=== PATIENT | female | born 1965 | race Caucasian/White ===

== ENCOUNTER → 2016-11-26 | Outpatient (CLI) | payer MEDICARE, MEDICAID ==
[~2016-11-26] MED LIST: ALBU17IN INH; CLON1TAB PO; LAMI1TAB8 PO; LAMI200T3 PO; LEVO25TA5 PO; LITH300C PO; LITH300T2 PO; MONT10TA2 PO; PROP20TA PO; SERO400T PO; SIMV10TA2 PO; TEMA30CA PO
--- NOTE | 2016-11-26 14:13 | REPMRS ---
Patient History The patient states she has not had a clinical breast exam in over a year. Patient has history of other cancer at age 27. No known family history of cancer. Digital Woman Screen Mammo: November 26, 2016 - Exam #: [id number] Bilateral CC and MLO view(s) were taken. Technologist: Bren Frost, Technologist Prior study comparison: November 23, 2015, digital woman screen mammo performed at [facility]. December 07, 2014, right breast digital mammo diagnostic unilateral, performed at [facility]. FINDINGS: The breast tissue is heterogeneously dense. This may lower the sensitivity of mammography. There has been no change in the appearance of the mammogram from the prior studies. There is a moderate amount of residual fibroglandular tissue which is fairly symmetric. There is no interval development of dominant mass, areas of architectural distortion, or clustered microcalcification typical of malignancy. ASSESSMENT: BI-RADS/ACR category 1 mammogram. Negative. Recommendation Routine screening mammogram in 1 year (for women over age 40). This mammogram was interpreted with the aid of an FDA-approved computer-aided dectection system. Electronically Signed By: Vazquez Crenshaw MD 11/26/16 [id number]
== END ==
LOC: M WHC 12:59
PROVIDERS: ATTEND Nurse Practitioner
DX: Z12.31 Encounter for screening mammogram for malignant neoplasm of breast (principal)

== ENCOUNTER → 2016-12-27 | Outpatient (CLI) | payer MEDICARE, MEDICAID ==
[~2016-12-27] MED LIST changes: +ATIV1TAB7 PO; +BENZ100C5; +CLOZ100T14 PO; +IMIT100T PO; +OMEG1CAP4; +OSEL75CA PO; +prednisone OR
--- NOTE | 2016-12-27 14:14 | REP ---
TWO VIEW CHEST: Two views of the chest are performed and compared to a prior study of 09/05/2015 and 02/08/2016. There appears to be mild patchy right perihilar infiltrate. No infiltrate is seen on the left. The heart is normal in size. The mediastinal silhouette is unchanged. IMPRESSION: Very mild patchy right perihilar infiltrate.
== END ==
LOC: M CLY 13:01
PROVIDERS: ATTEND Physician Assistant
DX: J11.1 Influenza due to unidentified influenza virus with other respiratory manifestations (principal)
CPT/HCPCS: 71020; G0463

== ENCOUNTER 2016-12-28 19:27 | Emergency (ER) | payer MEDICARE, MEDICAID ==
[~2016-12-28] VITALS: Ht 157.5 cm; Wt 83.5 kg
[~2016-12-28 19:27] MED LIST changes: -ATIV1TAB7 PO; -BENZ100C5; -CLOZ100T14 PO; -IMIT100T PO; -OMEG1CAP4; -OSEL75CA PO; -prednisone OR
[2016-12-28] MEDS ORDERED: ATIV1TAB7 PO (19:39)
[2016-12-28] MEDS ORDERED: IMIT100T PO (19:39)
[2016-12-28] MEDS ORDERED: LITH300C PO (19:39)
[2016-12-28] MEDS ORDERED: OSEL75CA PO (19:39)
[2016-12-28] MEDS ORDERED: prednisone OR (19:40)
[2016-12-28] MEDS ORDERED: BENZ100C5 (19:42)
[2016-12-28] MEDS ORDERED: OMEG1CAP4 (19:42)
[2016-12-28] MEDS ORDERED: CLOZ100T14 PO (19:42)
[2016-12-28] MEDS ORDERED: NS 1,000 ML IV ONE (23:45)
[2016-12-28] MEDS ORDERED: ACETAMINOPHEN 325 MG TAB PO ONE (23:45)
[2016-12-29 00:05] LABS: BASO % 0.5 % (0.0-1.0); EOS # 0.4 K/mm3 (0.0-0.50); EOS % 4.6 % (0.0-3.0); LARGE UNSTAINED CELL # 0.1 K/mm3 (0.0-0.4); LARGE UNSTAINED CELL % 1.2 % (0.0-4.0); LYMPH # 2.6 K/mm3 (1.5-4.5); LYMPH % 31.2 % (24.0-44.0); MEAN CORPUSCULAR HEMOGLOBIN 29.6 pg (27.0-33.0); MEAN CORPUSCULAR HGB CONC 32.3 g/dl (32.0-36.5); MEAN CORPUSCULAR VOLUME 91.5 fl (80.0-96.0); MONO # 0.5 K/mm3 (0.0-0.8); NEUTROPHILS # 4.5 K/mm3 (1.8-7.7); NEUTROPHILS % 56.4 % (36.0-66.0); PLATELET COUNT, AUTOMATED 221 k/mm3 (150-450); RED CELL DISTRIBUTION WIDTH 12.7 % (11.5-14.5)
[2016-12-29] MEDS: ALBUTEROL SULFATE 2.5 MG/0.5 ML INH NEB SOLN NEB PRN ×3 (00:25→00:55)
[2016-12-29 00:26] LABS: ANION GAP 6 MEQ/L (8-16); BLOOD UREA NITROGEN 18 MG/DL (7-18); CALCIUM LEVEL 9.8 MG/DL (8.5-10.1); CARBON DIOXIDE LEVEL 24 MEQ/L (21-32); CHLORIDE LEVEL 109 MEQ/L (98-107); CREATININE FOR GFR 1.02 MG/DL (0.55-1.02); GLOMERULAR FILTRATION RATE > 60.0 (>51); GLUCOSE, FASTING 97 MG/DL (70-105); SODIUM LEVEL 139 MEQ/L (136-145)
[2016-12-29 00:39] LABS: POTASSIUM SERUM 5.2 MEQ/L (3.5-5.1)
[2016-12-29 01:05] VITALS: BP 102/69
--- NOTE | 2016-12-29 11:00 | REP ---
PA LATERAL CHEST: 12/29/2016. Comparison 12/27/2016, 02/08/2016. Clinical history: Pneumonia, influenza. The subtle patchy infiltrate is less apparent on this slightly more penetrated exam but is still present. There is no new or progressive infiltrate, effusion, atelectasis or mass. The heart, mediastinal and hilar contours are normal. Minor apical pleural scarring noted. No effusion or lateral pleural thickening. There is no free air under the diaphragm. Bones unremarkable. Impression: 1. Some minor patchy perihilar atelectasis or infiltrate in the right mid lung zone without new or progressive infiltrates, effusion, atelectasis or cardiomegaly. Essentially stable exam. Signed by Mayo Thapa MD 12/29/2016 08:21 P
== END 2016-12-29 01:08 | disposition home or self-care (01) ==
LOC: M ED 21:08
DX: J10.1 Influenza due to other identified influenza virus with other respiratory manifestations (principal); J45.909 Unspecified asthma, uncomplicated; E03.9 Hypothyroidism, unspecified; E78.5 Hyperlipidemia, unspecified; G43.909 Migraine, unspecified, not intractable, without status migrainosus; F31.9 Bipolar disorder, unspecified; Z88.8 Allergy status to other drugs, medicaments and biological substances

== ENCOUNTER → 2017-01-02 | Outpatient (CLI) | payer MEDICARE, MEDICAID ==
[~2017-01-02] MED LIST changes: +ATIV1TAB7 PO; +BENZ100C5; +CLOZ100T14 PO; +IMIT100T PO; +OMEG1CAP4; +OSEL75CA PO; +prednisone OR
--- NOTE | 2017-01-02 10:05 | REP ---
CHEST, TWO VIEWS: COMPARISON: 12/28/2016 There is no evidence of acute infiltrate. No pleural effusion is seen. The heart is normal in size. The mediastinal silhouette is unremarkable. The visualized osseous structures are intact. IMPRESSION: No acute pulmonary disease. The right perihilar infiltrate has resolved. Signed by Vazquez Crenshaw MD 01/02/2017 02:25 P
== END ==
LOC: M RAD 08:25
PROVIDERS: ATTEND Physician Assistant
DX: J11.1 Influenza due to unidentified influenza virus with other respiratory manifestations (principal); F20.9 Schizophrenia, unspecified; F31.9 Bipolar disorder, unspecified

== ENCOUNTER → 2017-01-02 | Outpatient (CLI) | payer MEDICARE, MEDICAID ==
[2017-01-02 07:06] LABS: BASO % 0.7 % (0.0-1.0); EOS # 0.4 K/mm3 (0.0-0.50); EOS % 5.4 % (0.0-3.0); LARGE UNSTAINED CELL # 0.1 K/mm3 (0.0-0.4); LARGE UNSTAINED CELL % 1.3 % (0.0-4.0); LYMPH # 2.1 K/mm3 (1.5-4.5); LYMPH % 27.9 % (24.0-44.0); MEAN CORPUSCULAR HEMOGLOBIN 28.7 pg (27.0-33.0); MEAN CORPUSCULAR VOLUME 89.6 fl (80.0-96.0); MONO # 0.6 K/mm3 (0.0-0.8); MONO % 7.2 % (0.0-5.0); NEUTROPHILS # 4.4 K/mm3 (1.8-7.7); NEUTROPHILS % 57.5 % (36.0-66.0); PLATELET COUNT, AUTOMATED 292 k/mm3 (150-450); RED CELL DISTRIBUTION WIDTH 12.5 % (11.5-14.5); WHITE BLOOD COUNT 7.6 K/mm3 (4.0-10.0)
== END ==
LOC: M LAB 06:18
PROVIDERS: ATTEND Nurse Practitioner Psychiatric/Mental Health
DX: F20.9 Schizophrenia, unspecified (principal); F31.9 Bipolar disorder, unspecified

== ENCOUNTER 2017-02-02 10:54 | Observation (INO) | payer MEDICARE, MEDICAID ==
[~2017-02-02] VITALS: Ht 157.5 cm; Wt 87.2 kg
[~2017-02-02 10:54] MED LIST changes: +ASPIRIN 81 MG ENTERIC TAB PO SCH; +LORATADINE 10 MG TAB PO SCH; +MONTELUKAST 10 MG TAB PO SCH
[2017-02-02] MEDS ORDERED: NS 500 ML IV ONE (11:15)
[2017-02-02] MEDS ORDERED: RANI150C PO (11:25)
[2017-02-02] MEDS ORDERED: MULT1CHW39 PO (11:25)
[2017-02-02] MEDS ORDERED: LEVO50TA5 PO (11:25)
[2017-02-02] MEDS ORDERED: LAMO100T PO (11:25)
[2017-02-02] MEDS ORDERED: ASPI81TA21 PO (11:25)
[2017-02-02] MEDS ORDERED: TOPI200T4 PO (11:25)
[2017-02-02] MEDS ORDERED: CALC600T57 PO (11:25)
[2017-02-02] MEDS ORDERED: CLOZ200T PO ×2 (11:25→13:04)
[2017-02-02 11:47] LABS: BASO # 0.1 K/mm3 (0.0-0.2); EOS # 0.4 K/mm3 (0.0-0.50); EOS % 6.5 % (0.0-3.0); LARGE UNSTAINED CELL # 0.1 K/mm3 (0.0-0.4); LARGE UNSTAINED CELL % 1.1 % (0.0-4.0); LYMPH # 1.5 K/mm3 (1.5-4.5); LYMPH % 23.9 % (24.0-44.0); MEAN CORPUSCULAR HEMOGLOBIN 30.1 pg (27.0-33.0); MEAN CORPUSCULAR HGB CONC 32.3 g/dl (32.0-36.5); MONO # 0.3 K/mm3 (0.0-0.8); MONO % 5.1 % (0.0-5.0); NEUTROPHILS # 3.8 K/mm3 (1.8-7.7); NEUTROPHILS % 62.5 % (36.0-66.0); PLATELET COUNT, AUTOMATED 246 k/mm3 (150-450); RED CELL DISTRIBUTION WIDTH 13.1 % (11.5-14.5); WHITE BLOOD COUNT 6.1 K/mm3 (4.0-10.0)
--- NOTE | 2017-02-02 11:57 | REP ---
CT BRAIN WITHOUT IV CONTRAST: CT brain is performed without IV contrast. Ventricles are normal in size and position with no midline shift. No abnormal densities are seen. Crenshaw-white differentiation is well maintained. There is no acute hemorrhage or extra-axial fluid collection. No skull fracture is seen. Visualized paranasal sinuses and mastoid air cells are clear. IMPRESSION: Negative noncontrast CT brain. Signed by Vazquez Crenshaw MD 02/02/2017 07:47 P
--- NOTE | 2017-02-02 11:58 | REP ---
CHEST, SINGLE VIEW: There is no evidence of acute infiltrate. No pleural effusion is seen. The heart is normal in size. The mediastinal silhouette is unremarkable. The visualized osseous structures are intact. IMPRESSION: No acute pulmonary disease. Signed by Vazquez Crenshaw MD 02/02/2017 07:47 P
[2017-02-02 11:59] LABS: CALCIUM LEVEL 8.7 MG/DL (8.5-10.1); CREATININE FOR GFR 1.08 MG/DL (0.55-1.02); GLOMERULAR FILTRATION RATE 56.9 (>51); POTASSIUM SERUM 4.1 MEQ/L (3.5-5.1)
[2017-02-02] MEDS: LITHIUM CARBONATE 300 MG CAP PO SCH ×2 (12:00→20:04)
[2017-02-02] MEDS ORDERED: LITHIUM CARBONATE 300 MG CAP PO SCH (12:00)
[2017-02-02 12:06] LABS: INR 0.91
[2017-02-02] MEDS ORDERED: ACETAMINOPHEN TAB 650MG DOSE (2X325MG) PO ONE (12:15)
[2017-02-02] MEDS ORDERED: KETOROLAC 30 MG/ML VIAL (J1885) IV ONE (12:15)
[2017-02-02] MEDS ORDERED: LITH300T2 PO ×2 (13:04)
[2017-02-02] MEDS ORDERED: LEVO75TA34 PO (13:04)
[2017-02-02] MEDS ORDERED: ATIV1TAB7 PO (13:04)
[2017-02-02] MEDS ORDERED: CALCTAB68 PO (13:04)
[2017-02-02] MEDS ORDERED: SIMV10TA2 PO (13:04)
[2017-02-02] MEDS ORDERED: VITMTA PO (13:04)
[2017-02-02] MEDS ORDERED: TOPI1TAB31 PO (13:04)
[2017-02-02] MEDS ORDERED: LORA10TA2 PO (13:04)
[2017-02-02] MEDS ORDERED: ALBU17IN INH (13:04)
[2017-02-02] MEDS ORDERED: SUMA20SP (13:04)
[2017-02-02] MEDS ORDERED: LAMI100T PO (13:04)
[2017-02-02] MEDS ORDERED: LOVA1CAP17 PO (13:04)
[2017-02-02] MEDS ORDERED: ASPI81TA7 PO (13:04)
[2017-02-02] MEDS ORDERED: LAMI200T PO (13:04)
[2017-02-02] MEDS ORDERED: RANI150T PO (13:04)
[2017-02-02] MEDS ORDERED: LORA1TAB12 PO (13:04)
[2017-02-02] MEDS ORDERED: MONT10TA2 PO (13:04)
[2017-02-02 13:35] LABS: LITHIUM LEVEL 1.16 MEQ/L (0.60-1.20)
[2017-02-02 14:02] VITALS: BP 128/95
[2017-02-02] MEDS ORDERED: ALBUTEROL 90 MCG/ACT 8GM HFA INHALER INH PRN (14:30)
[2017-02-02] MEDS ORDERED: LORazepam 1 MG TAB PO PRN (14:30)
[2017-02-02] MEDS: HEPARIN SOD (PORCINE) 5000 UNITS/ML VIAL SC SCH ×2 (15:37→20:08)
[2017-02-02] MEDS: MONTELUKAST 10 MG TAB PO SCH (15:38)
[2017-02-02] MEDS: LORATADINE 10 MG TAB PO SCH (15:38)
[2017-02-02] MEDS: FAMOTIDINE 20 MG TAB PO SCH (15:38)
[2017-02-02 16:00] VITALS: BP 113/78
--- NOTE | 2017-02-02 16:47 | ECGEPIP ---
Stationary ECG Study [facility] - ED Test Date: 2017-02-02 Pat Name: PATRICIA MINER Department: Room: - Gender: F Cardiac Care Unit Nurse: rn : 1965 Requested By: DARÍO Lanza Order Number: [id number] Reading MD: Nichol Marcelino Measurements Intervals [place] Rate: 62 P: 4 ID: [id number] QRS: 7 QRSD: 101 T: -8 QT: 412 QTc: 421 Interpretive Statements SINUS RHYTHM NSTTW ABNORMALITY Electronically Signed On 02-02-2017 16:47:20 EDT by Nichol Marcelino
[2017-02-02 17:50] VITALS: BP 117/76
--- NOTE | 2017-02-02 20:00 | REPUSA ---
MRI brain Clinical history: Left sided numbness. Technique: Multiecho multiplanar MRI images of the brain were obtained without administration of cont rast. Diffusion weighted images with ADC mapping was also obtained. The ventricles and sulci are symmetric bilaterally. The brain parenchyma demonstrates uniform and nor mal signal on all sequences. There is no midline shift, mass effect, or extra-axial fluid collection. The midline intracranial structures do not demonstrate any gross abnormalities. The cervical cranial junction is intact. The orbits are unremarkable. The visualized paranasal sinuses and mastoid air ce lls are clear. The osseous structures and superficial soft tissues are unremarkable. The vascular str uctures demonstrate appropriate flow voids. Impession: Unremarkable MRI of the brain.
--- NOTE | 2017-02-02 20:00 | REPUSA ---
MRA of the brain Clinical history: Left sided numbness. Technique: [id number] MRA images of the brain were obtained without administration of contrast. 3 -D MIP images were also obtained. Findings: The vascular structures extending from the distal carotid and vertebrobasilar arterial syst ems, through the [place], demonstrate normal caliber and contour. There is no evidence of an eurysm, stenosis, or thrombosis. Impression: Unremarkable MRA examination of the brain.
[2017-02-02] MEDS: OMEGA-3 1050MG CAPSULE PO SCH (20:04)
[2017-02-02] MEDS: cloZAPine 100 MG TAB (S0136) PO SCH (20:04)
[2017-02-02 20:05] VITALS: BP 115/79
[2017-02-02] MEDS: LORazepam 1 MG TAB PO SCH (20:05)
[2017-02-02] MEDS: SIMVASTATIN 10 MG TAB PO SCH (20:05)
[2017-02-02] MEDS: TOPIRAMATE (TopAMAX) 100 MG TAB PO SCH (20:05)
--- NOTE | 2017-02-02 23:01 | HPE ---
DATE OF ADMISSION: 02/02/2017 PRIMARY CARE PROVIDER: Lucita Leon in [facility]. CHIEF COMPLAINT: Left-sided numbness. HISTORY OF PRESENT ILLNESS: This patient is a 49-year-old female with a past medical history significant for bipolar disorder, borderline personality disorder, anxiety/depression, obsessive-compulsive disorder (OCD), hypothyroidism, hypercholesterolemia, history of psychosis who presented to [facility] on 02/02/2017 for acute onset of left-sided numbness and tingling. Around 7 o'clock when patient was in the shower, patient experienced acute onset of numbness of the left hand, left face, and the left foot. She also started having tingling sensation of the affected area. Patient feels she also started having slurred speech and left-sided visual disturbance. Therefore, patient came to [facility] for evaluation. When patient was evaluated around 1 p.m., patient states her left foot numbness and tingling was improving; however, she still has a decreased sensation of her left hand and the left face, and she still feels the left facial droop still persists. Those symptoms never happened before. Patient has a history of migraine headaches. Usually she will have an acute exacerbation one to two times a month. The most recent episode was approximately 2 days ago. Patient describes current visual disturbance different from the visual aura that she had during the exacerbations. Denies any new medication changes. Denies any recreational drug use. Denies any new lifestyle modifications. ALLERGIES: 1. PROZAC (decreased visual acuity). 2. HYDROXYZINE (increased agitation). HOME MEDICATIONS: - loratadine 10 mg - topiramate 100 mg - montelukast 10 mg - lithium 300 mg - simvastatin 10 mg - lamotrigine 200 mg - ranitidine 150 mg - lorazepam 1 mg - clonazepam 200 mg - levothyroxine 0.05 mg - sumatriptan 100 mg - aspirin 81 mg PAST MEDICAL HISTORY: 1. Bipolar disorder. 2. Borderline personality disorder. 3. Anxiety/depression. 4. OCD. 5. Hypothyroidism. 6. Hypercholesterolemia. 7. History of psychosis. PAST SURGICAL HISTORY: 1. Left foot repair surgery. 2. Tubal ligation. SOCIAL HISTORY: Denied smoking. Patient has a history of heavy drinking; however , patient does not have recent alcohol consumption or abuse. Patient has history of multidrug dependence. Patient used to use crack, heroin, oxycodone, weed, and many other illicit drugs. Patient quit completely since 12 years ago. REVIEW OF SYSTEMS: GENERAL: No fever. No chills. HEENT: Complained about left-sided visual disturbance, causing blurry vision. The vision disturbance is different from her normal visual auras. Patient complained about left facial droop. Also a history of migraine headache. Denies any auditory changes. CARDIOVASCULAR: No chest pain. No palpitations. RESPIRATORY: No shortness of breath. No cough. No sputum production. GASTROINTESTINAL: No nausea. No vomiting. No abdominal pain. No diarrhea. MUSCULOSKELETAL: No joint pain. No muscle pain. NEUROLOGIC: Patient started to have acute onset of left face, left arm, left foot numbness or tingling that started at 8 a.m. this morning. Left foot numbness improving around 1 p.m.; however, the left upper extremity numbness still persists. Patient also has left-sided facial droop and left-sided visual disturbance. Those symptoms never happened before. OBJECTIVE: VITAL SIGNS: Temperature is 97.1, pulse is 66, respirations 18, blood pressure is 118/84, pulse oximetry 97% in room air. GENERAL: Obese. No sign of acute distress. Alert and oriented times three. HEENT: Normocephalic, atraumatic. Extraocular motion grossly intact. CARDIOVASCULAR: Positive S1, S2, regular rate. LUNGS: Clear to auscultation bilaterally. No wheezes or rhonchi. ABDOMEN: Obese, soft, nontender, nondistended. Bowel sounds present. No rebound. No guarding. MUSCULOSKELETAL: No lower extremity edema. No sign of cyanosis. NEUROLOGIC: There is some very mild left facial droop in the lower left face; otherwise, cranial nerves II-XII grossly intact. Sensation to fine touch decreased of the left face, left distal upper extremity, and left distal lower extremity compared to the right side. Muscle strength 5/5 throughout. LABORATORY DATA: WBC is 6.1, hemoglobin 12.2, hematocrit 37.8, platelet count is 246. Sodium is 143, potassium 4.1, chloride is 112, carbon dioxide 22, BUN 14, creatinine 1.08, GFR is 56.9, fasting glucose 89, calcium is 8.7. PT is 12.4, INR 0.91, PTT is 24.7. IMAGING STUDIES: CT of the head without contrast showed negative non-contrast CT. Chest x-ray showed no acute pulmonary disease. EKG shows sinus rhythm. ASSESSMENT AND PLAN: 1. Acute left-sided numbness or tingling. Patient admitted to medical/surgical floor under observation status. Will continue to work to rule out a transient ischemic attack (TIA)/stroke. Will consider consulting neurologist. Based on the patient's history, patient does have frequent migraine headaches. Cannot rule out complex migraine completely. Patient has been on many psychiatric medication. We will follow with the levels. 2. Bipolar disorder. Continue home medications. 3. Borderline personality disorder. 4. Anxiety/depression. 5. Obsessive-compulsive disorder (OCD). 6. Hypothyroidism. We will follow with thyroid-stimulating hormone (TSH). Continue home medications. 7. Hypercholesterolemia. Continue statin, aspirin. 8. History of psychosis. 9. History of multidrug abuse. Per patient, patient stopped using recreational drugs 12 years ago. 10. Deep vein thrombosis (DVT) prophylaxis. Patient will be on heparin. [facility]
[2017-02-02 23:50] VITALS: BP 102/62
[2017-02-03] MEDS ORDERED: SLF 3 ML SYR IV PRN
[2017-02-03 04:30] VITALS: BP 102/58
[2017-02-03 05:20] LABS: MEAN CORPUSCULAR HEMOGLOBIN 30.4 pg (27.0-33.0); MEAN CORPUSCULAR HGB CONC 33.1 g/dl (32.0-36.5); MEAN CORPUSCULAR VOLUME 91.9 fl (80.0-96.0); WHITE BLOOD COUNT 5.8 K/mm3 (4.0-10.0)
[2017-02-03 05:34] LABS: ANION GAP 8 MEQ/L (8-16); BLOOD UREA NITROGEN 13 MG/DL (7-18); CALCIUM LEVEL 8.2 MG/DL (8.5-10.1); CARBON DIOXIDE LEVEL 20 MEQ/L (21-32); CHLORIDE LEVEL 117 MEQ/L (98-107); CREATININE FOR GFR 0.95 MG/DL (0.55-1.02); GLOMERULAR FILTRATION RATE > 60.0 (>51); GLUCOSE, FASTING 98 MG/DL (70-105); POTASSIUM SERUM 3.8 MEQ/L (3.5-5.1); SODIUM LEVEL 145 MEQ/L (136-145)
[2017-02-03] MEDS: LEVOTHYROXINE 0.075 MG TAB (75 MCG) PO SCH (05:45)
[2017-02-03] MEDS: HEPARIN SOD (PORCINE) 5000 UNITS/ML VIAL SC SCH ×3 (05:48→21:01)
[2017-02-03] MEDS: SLF 3 ML SYR IV SCH ×3 (06:29→21:01)
[2017-02-03 08:00] VITALS: BP 114/70
[2017-02-03] MEDS ORDERED: MULTIVITAMINS/MINERALS THERAP 1 TAB PO SCH (09:00)
[2017-02-03] MEDS ORDERED: FAMOTIDINE 20 MG TAB PO SCH (09:00)
[2017-02-03] MEDS: LITHIUM CARBONATE 300 MG CAP PO SCH ×3 (09:12→21:00)
[2017-02-03] MEDS: lamoTRIgine 100MG TAB PO SCH (09:59)
[2017-02-03 12:00] VITALS: BP 113/73
[2017-02-03] MEDS: MONTELUKAST 10 MG TAB PO SCH (12:13)
[2017-02-03] MEDS: FAMOTIDINE 20 MG TAB PO SCH (12:13)
[2017-02-03] MEDS: ASPIRIN 81 MG ENTERIC TAB PO SCH (12:13)
[2017-02-03] MEDS: LORATADINE 10 MG TAB PO SCH (12:13)
--- NOTE | 2017-02-03 12:58 | IPN ---
DATE: 02/03/2017 The patient seen and examined. No acute events overnight. Continues to report left upper extremity numbness and left facial numbness. As per patient, her speech is slurred but I was not able to detect any. Denies any chest pain, pressure or discomfort. Flat affect. VITAL SIGNS: Temperature 99.2, pulse 66, respirations 20, blood pressure 114/70, pulse oximetry 96% on room air. LABORATORY: WBC 5.8, hemoglobin and hematocrit 11.3 over 34.2 (H and H), platelets 230. Chemistry: Sodium 145, potassium 3.8, chloride 117, bicarbonate 20, BUN 13, creatinine 0.95. PHYSICAL EXAMINATION: GENERAL: The patient is obese in no acute distress. Alert and oriented times three. Flat affect. HEENT: Normocephalic, atraumatic. Extraocular muscles are intact. CARDIAC: Regular rate and rhythm. Normal S1, S2. PULMONARY: Bilateral clear to auscultation. No wheezing, rales or rhonchi. ABDOMEN: Soft. Obese. Nontender. Positive bowel sounds. EXTREMITIES: No edema bilateral lower extremities. NEUROLOGIC: Cranial nerves II-XII grossly intact. As per patient, reports sensation of left facial numbness and left upper extremity numbness, but no motor deficits were detected. Reflexes are intact. ASSESSMENT AND PLAN: 1. This is a 51-year-old female patient with underlying medical history of bipolar disorder, borderline personality disorder, anxiety and depression, obsessive compulsive disorder, hypothyroidism, dyslipidemia, history of psychosis who presented to [facility] with left sided numbness and tingling and also left facial numbness admitted to the progressive care unit (PCU) for rule out CVA, possible secondary to transient ischemic attack (TIA), neurology consulted, possibly also complex migraine as per Dr. Villalta. MRI and MRA of the brain negative. Followup patient's drug level. MRA of the carotid. Echocardiogram. Will complete the workup prior to discharge. 2. Bipolar disorder. Continue home medications. 3. Borderline personality disorder. Outpatient followup. 4. Depression and anxiety. Continue current medications. 5. Obsessive compulsive disorder. Continue current medications. 6. Hypothyroidism. TSH appreciated. Continue home medications. 7. Dyslipidemia. Continue statin and aspirin. 8. History of psychosis. Supportive care, outpatient followup. Continue current medications. 9. History of multi drug abuse. As per patient, she has stopped using recreational drugs twelve years ago. 10. Deep vein thrombosis (DVT) prophylaxis. Heparin subcutaneous. DISPOSITION: Pending echo and MRA of the neck.
[2017-02-03] MEDS: ACETAMINOPHEN TAB 650MG DOSE (2X325MG) PO PRN ×2 (14:50→19:39)
[2017-02-03 16:00] VITALS: BP 110/71
[2017-02-03] MEDS ORDERED: lamoTRIgine 100MG TAB PO SCH (17:30)
[2017-02-03 19:36] VITALS: BP 116/75
[2017-02-03] MEDS: cloZAPine 100 MG TAB (S0136) PO SCH (21:00)
[2017-02-03] MEDS: LORazepam 1 MG TAB PO SCH (21:00)
[2017-02-03] MEDS: OMEGA-3 1050MG CAPSULE PO SCH (21:00)
[2017-02-03] MEDS: SIMVASTATIN 10 MG TAB PO SCH (21:00)
[2017-02-03] MEDS ORDERED: ATORVASTATIN 20 MG TAB PO SCH (21:00)
[2017-02-03] MEDS: TOPIRAMATE (TopAMAX) 100 MG TAB PO SCH (21:00)
[2017-02-03 23:55] VITALS: BP 94/62
--- NOTE | 2017-02-04 01:12 | CR ---
DATE OF CONSULTATION: 02/03/2017 REFERRING PHYSICIAN: Farida Solorio MD. REASON FOR CONSULTATION: Left-sided numbness. HISTORY OF PRESENT ILLNESS: Maria Isabel Regalado is a 51-year-old woman with history of bipolar disorder, borderline personality disorder, obsessive-compulsive disorder, anxiety, depression, dyslipidemia, history of psychosis, who was admitted at [facility] yesterday due to left-sided face, arm and leg tingling and numbness. She noted her symptoms 7 o'clock in the morning while she was taking a shower. She felt tingling sensation of left face, arm and leg. She also felt slurred speech and visual changes on the left side. She also developed 7/10 headache. She felt slight imbalance. She denies any seizures, dysphagia, dysarthria, diplopia or urinary incontinence. She denies any falls or loss of consciousness. She denies any injuries or illness. PAST MEDICAL HISTORY: 1. Bipolar disorder. 2. Borderline personality disorder. 3. Anxiety. 4. Depression. 5. Obsessive-compulsive disorder. 6. Dyslipidemia. 7. History of psychosis. 8. Hypothyroidism. ALLERGIES: PROZAC, HYDROXYZINE. HOME MEDICATIONS: - Lamictal 100 plus 200 mg a day - Claritin 10 mg by mouth daily - Topamax 100 mg by mouth daily - Singulair 10 mg by mouth daily - lithium - simvastatin 10 mg by mouth daily - Zantac 150 mg by mouth nightly - Ativan 1 mg by mouth twice a day as needed - Klonopin at unknown dose - levothyroxine 50 mcg by mouth daily - sumatriptan 100 mg by mouth twice a day as needed - aspirin 81 mg by mouth daily SOCIAL HISTORY: She denies smoking. She has history of heavy alcohol consumption. She denies any recent alcohol intake. She has history of polysubstance abuse in past. She used crack cocaine, heroin, oxycodone, weed, and other illicit drugs. She quit using drugs 12 years ago. FAMILY HISTORY: Unremarkable and noncontributory. REVIEW OF SYSTEMS: All systems were reviewed and were found to be noncontributory except as mentioned in history of present illness. PHYSICAL EXAMINATION: Temperature 99.1, pulse 66, respiratory rate 20, blood pressure 114/70, 96% saturation on room air. Heart: Regular rate and rhythm. Lungs: Clear to auscultation. Abdomen: Soft, nontender, nondistended. Neurological exam: The patient is awake, alert, oriented to place, person and time. Normal speech, comprehension and repetition. Extraocular muscles are intact. No facial weakness. Tongue and uvula are midline. 5/5 strength in all four extremities. Deep tendon flexes are 2+ throughout. She states that she has decreased and altered sensation on left side of her body including face. There is no dysmetria. Gait is normal. DIAGNOSTIC STUDIES: Her MRI and MRA of brain were within normal limits. ASSESSMENT: 1. Migraine, with aura, not intractable, without status migrainosus. 2. Left-sided body numbness, slurred speech, visual changes and imbalance of unclear etiology without evidence of stroke on MRI scan of brain. 3. History of bipolar disorder, borderline personality disorder, obsessive-compulsive disorder, anxiety and depression. PLAN: 1. MRA of carotid arteries and echocardiogram. 2. Aspirin 81 mg by mouth daily. 3. Topamax 100 mg by mouth nightly and she will closely followup with her outpatient neurologist and psychiatrist. She usually sees Dr. Ely in our office. 4. Physical and occupational therapy. 5. Blood tests to rule out coagulopathy and vasculopathy.
[2017-02-04 03:35] VITALS: BP 100/66
[2017-02-04 05:18] LABS: MEAN CORPUSCULAR HEMOGLOBIN 29.3 pg (27.0-33.0); MEAN CORPUSCULAR HGB CONC 31.3 g/dl (32.0-36.5); MEAN CORPUSCULAR VOLUME 93.6 fl (80.0-96.0); RED CELL DISTRIBUTION WIDTH 12.9 % (11.5-14.5); WHITE BLOOD COUNT 7.3 K/mm3 (4.0-10.0)
[2017-02-04 05:38] LABS: ANION GAP 9 MEQ/L (8-16); BLOOD UREA NITROGEN 10 MG/DL (7-18); CALCIUM LEVEL 8.4 MG/DL (8.5-10.1); CARBON DIOXIDE LEVEL 18 MEQ/L (21-32); CHLORIDE LEVEL 116 MEQ/L (98-107); GLOMERULAR FILTRATION RATE > 60.0 (>51); GLUCOSE, FASTING 92 MG/DL (70-105); POTASSIUM SERUM 3.7 MEQ/L (3.5-5.1); SODIUM LEVEL 143 MEQ/L (136-145)
[2017-02-04] MEDS: HEPARIN SOD (PORCINE) 5000 UNITS/ML VIAL SC SCH ×2 (05:45→13:49)
[2017-02-04] MEDS: LEVOTHYROXINE 0.075 MG TAB (75 MCG) PO SCH (05:45)
[2017-02-04] MEDS: SLF 3 ML SYR IV SCH ×2 (06:00→13:45)
[2017-02-04] MEDS: ACETAMINOPHEN TAB 650MG DOSE (2X325MG) PO PRN (07:53)
[2017-02-04 08:00] VITALS: BP 127/52
[2017-02-04] MEDS: lamoTRIgine 100MG TAB PO SCH (08:04)
[2017-02-04] MEDS: LITHIUM CARBONATE 300 MG CAP PO SCH ×2 (08:04→12:41)
--- NOTE | 2017-02-04 09:15 | REP ---
MRA CAROTIDS WITHOUT AND WITH CONTRAST: 02/04/2017. Clinical history: left-sided numbness. Evaluate for carotid disease. Comparison: There are no prior pertinent studies. Technique: 2-D [id number] gradient echo images followed by infusion of 25 mL of ProHance. MIP reformatting with rotational display of the reconstructed arteries about the longitudinal axis of the spine for anterior, posterior circulation and together. All source images are reviewed. Findings: There are three vessels with origin off the aortic arch, innominate artery gives rise to the common carotid on that right side. There is some atherosclerotic plaque without significant stenosis or aneurysm, artifact limits evaluation of this region. Course of the right common carotid and neck was normal. The proximal ICA shows about 30% stenosis with very mild dilatation of the proximal right ICA. The left common carotid artery has a separate origin from the aortic arch, has a normal course through the neck. There is no stenosis at the bulb or proximal ICA. The course of the left ICA to the skull base is without stenosis or aneurysm similar to the right side. The left vertebral artery shows its origin of the left subclavian or stenosis near its origin. There is a smaller caliber right vertebral artery arising from the right subclavian. There is a dominant left vertebral artery contribution to the basilar artery. The basilar artery shows no stenosis. No basilar tip aneurysm. Impression: 1. There is less than 30% stenosis at the origin of the right internal carotid with some mild post stenotic dilatation but no aneurysm. The remainder of the internal carotid on the right to the skull base and the entire left internal carotid showed no aneurysm or stenosis. 2. Vertebral arteries show dominant contribution of the basilar artery from the left. There is some stenosis at the origin on the right greater than left and caliber on the right is smaller throughout. Signed by Mayo Thapa MD 02/04/2017 01:29 P
[2017-02-04] MEDS ORDERED: FIORICET TAB PO PRN (10:15)
[2017-02-04 12:00] VITALS: BP 102/57
[2017-02-04] MEDS: FAMOTIDINE 20 MG TAB PO SCH (12:37)
[2017-02-04] MEDS: ASPIRIN 81 MG ENTERIC TAB PO SCH (12:37)
[2017-02-04] MEDS: LORATADINE 10 MG TAB PO SCH (12:41)
[2017-02-04] MEDS: MONTELUKAST 10 MG TAB PO SCH (12:41)
--- NOTE | 2017-02-04 16:51 | DSES ---
DATE OF ADMISSION: 02/02/2017 DATE OF DISCHARGE: 02/04/2017 PRIMARY CARE PROVIDER: Physician executive assistant Lucita Leon NEUROLOGIST: Dr. Villalta FINAL DIAGNOSES: 1. Rule out cerebrovascular accident (CVA). 2. Complex migraine. 3. History of bipolar disorder. 4. History of borderline personality disorder. 5. History of depression and anxiety. 6. Hypothyroidism. 7. Obsessive-compulsive disorder. 8. Dyslipidemia. 9. History of psychosis. 10. History of multiple drug abuse. HISTORY OF PRESENT ILLNESS: This is a 51-year-old female patient with underlying medical history of bipolar disorder, borderline personality disorder, anxiety, depression, obsessive-compulsive disorder, hypothyroidism, dyslipidemia, history of psychosis, who presented to [facility] on 02/02/2017 for acute onset of left-sided numbness and tingling around 7:00 o'clock when the patient was showering. The patient experienced acute onset of numbness of left hand, left face, and left foot. She also started to have a tingling sensation over the affected area. She feels that she also started having slurred speech and left-sided visual disturbances. Therefore, she came to [facility]. When the patient was evaluated at around 1:00 p.m., the patient stated that her left foot numbness and tingling was improved. However, she still had decreased sensation of left hand and left face. She still feels facial droop which is not seen on examination. Subsequently, the patient was admitted to the hospital. HOSPITAL COURSE: Neurology, Dr. Villalta, was consulted. MRI/MRA of the brain was done. MRA of the carotids was done. The patient was continued on aspirin. Her symptoms progressively improved. Home medications were continued. The patient is currently tolerating oral, in no acute distress, comfortable. Passed physical therapy and ready for discharge for further care as outpatient. Case discussed with Dr. Villalta. No further adjustment of medications needed. VITAL SIGNS: Temperature 98.7, pulse 62, respiratory rate 20, blood pressure 102/57, pulse oximetry 99% on room air. LABORATORY DATA: WBC 7.3, hemoglobin and hematocrit 11.2/35.8, platelets 239. Chemistry: Sodium 143, potassium 3.7, chloride 116, bicarbonate 18, BUN 10, creatinine 1. DISCHARGE MEDICATIONS: - Ventolin inhaler every four hours as needed - aspirin 81 mg by mouth daily - calcium with vitamin D one tablet by mouth twice a day - clozapine 200 mg by mouth at bedtime - Lamictal 100 mg by mouth in the morning and 300 mg by mouth every evening - levothyroxine 75 mcg by mouth daily - lithium carbonate 300 mg by mouth twice a day and 600 mg by mouth at bedtime - loratadine 10 mg by mouth daily - Ativan 1 mg by mouth daily as needed and 2 mg by mouth at bedtime - montelukast 10 mg by mouth daily - multivitamin one tablet by mouth daily - omeprazole - omega-3 fatty acid one capsule by mouth every evening - ranitidine one tablet by mouth daily 130 mg - Zocor 10 mg by mouth at bedtime - sumatriptan 20 mg intranasal as needed for migraine - topiramate 100 mg by mouth at bedtime DISCHARGE INSTRUCTIONS: The patient is instructed to followup with primary care provider in seven days and neurologist in two weeks. Return to the hospital if symptoms worsen.
[2017-02-06 00:07] LABS: TOPIRAMATE LEVEL 3.9 ug/mL (2.0-25.0)
--- NOTE | 2017-02-06 07:59 | ECHO ---
DATE OF PROCEDURE: 02/03/2017 REFERRING PHYSICIAN: Perla Chun MD INDICATION: Transient cerebral ischemia unspecified. HEIGHT: 158 cm WEIGHT: 83 kg 2D MEASUREMENTS: Left atrium 3.1 cm Aortic root 2.8 cm Ventricular septum: 1.0 cm Left ventricle diastole: 3.7 cm Posterior wall: 1.04 cm LVOT: 1.7 cm Inferior vena cava: 1.6 cm DOPPLER MEASUREMENTS: Aortic valve velocity: 168 cm/s LVOT velocity: 141 cm/s LVOT VTI: 28.3 cm Very mild mitral regurgitation. Mitral E velocity: 89.3 cm/s Mitral A velocity: 75.0 cm/s Mitral deceleration time: 180 ms Very mild tricuspid regurgitation. Estimated right ventricle systolic pressure of 30 mmHg assuming a pressure of 5 mmHg Trace to moderate regurgitation. Pulmonary artery systolic pressure 24 mmHg by pulmonary acceleration time method. MITRAL ANNULAR TISSUE DOPPLER: E prime septal: 8.5 cm/s E prime lateral: 13.7 cm/s DESCRIPTION: Rhythm was sinus. This is a moderately technically difficult echocardiogram. No pericardial effusion. This was a 2D, M-mode, color flow Doppler and pulse wave Doppler examination that included mitral annular tissue Doppler. CONCLUSIONS: 1. Normal echocardiogram Doppler. 2. Normal left ventricle systolic function. Left ventricular ejection fraction of 70% by visual estimate.
== END 2017-02-04 14:57 | disposition home or self-care (01) ==
LOC: EDBD 10:54 → M ED 11:54 → M ED INP 12:46 → M PCU 14:00
PROVIDERS: ADMIT Internal Medicine; ATTEND Hospitalist
DX: G43.909 Migraine, unspecified, not intractable, without status migrainosus (principal); E03.9 Hypothyroidism, unspecified; E78.00 Pure hypercholesterolemia, unspecified; E78.5 Hyperlipidemia, unspecified; Z79.899 Other long term (current) drug therapy; Z88.8 Allergy status to other drugs, medicaments and biological substances; F31.9 Bipolar disorder, unspecified; F42.9 Obsessive-compulsive disorder, unspecified; F60.3 Borderline personality disorder; F41.9 Anxiety disorder, unspecified
CPT/HCPCS: 36415; 70450; 70544; 70549; 70551; 71010; 80048; 80061; 80175; 80178; 80299; 84443; 85025; 85027; 85610; 85730; 93005; 93041; 93306; 94760; 96372; 96374; 99285; A9576; G0378; J1885

== ENCOUNTER 2017-02-25 14:36 | Emergency (ER) | payer MEDICARE, MEDICAID ==
[~2017-02-25] VITALS: Ht 157.5 cm; Wt 83.5 kg
[~2017-02-25 14:36] MED LIST changes: +ASPI81TA21 PO; +ASPI81TA7 PO; -ASPIRIN 81 MG ENTERIC TAB PO SCH; +CALC600T57 PO; +CALCTAB68 PO; +CLOZ200T PO; +LAMI100T PO; +LAMI200T PO; +LAMO100T PO; +LEVO50TA5 PO; +LEVO75TA34 PO; +LORA10TA2 PO; +LORA1TAB12 PO; -LORATADINE 10 MG TAB PO SCH; +LOVA1CAP17 PO; -MONTELUKAST 10 MG TAB PO SCH; +MULT1CHW39 PO; +RANI150C PO; +RANI150T PO; +SUMA20SP; +TOPI1TAB31 PO; +TOPI200T4 PO; +VITMTA PO
--- NOTE | 2017-02-25 16:02 | REP ---
CT Head without contrast HISTORY: Infarction COMPARISON: 02/02/2017 There is no intraparenchymal hemorrhage, acute infarct, mass or midline shift. The ventricular system is normal in appearance. There is no extra cerebral collection. There is no fracture. The visualized sinuses are clear. IMPRESSION: There is no intracranial lesion. Signed by Jasper Holder MD 02/25/2017 03:53 P
[2017-02-25 16:08] LABS: INR 0.89
[2017-02-25 16:20] LABS: BASO # 0.1 K/mm3 (0.0-0.2); BASO % 1.1 % (0.0-1.0); EOS # 0.3 K/mm3 (0.0-0.50); EOS % 5.7 % (0.0-3.0); LARGE UNSTAINED CELL # 0.1 K/mm3 (0.0-0.4); LARGE UNSTAINED CELL % 1.5 % (0.0-4.0); LYMPH # 1.9 K/mm3 (1.5-4.5); LYMPH % 29.6 % (24.0-44.0); MEAN CORPUSCULAR HEMOGLOBIN 30.4 pg (27.0-33.0); MEAN CORPUSCULAR VOLUME 92.1 fl (80.0-96.0); MONO # 0.4 K/mm3 (0.0-0.8); MONO % 6.5 % (0.0-5.0); NEUTROPHILS # 3.4 K/mm3 (1.8-7.7); NEUTROPHILS % 55.6 % (36.0-66.0); PLATELET COUNT, AUTOMATED 257 k/mm3 (150-450); RED CELL DISTRIBUTION WIDTH 12.9 % (11.5-14.5)
[2017-02-25 16:25] LABS: ANION GAP 6 MEQ/L (8-16); BLOOD UREA NITROGEN 16 MG/DL (7-18); CALCIUM LEVEL 9.2 MG/DL (8.5-10.1); CARBON DIOXIDE LEVEL 22 MEQ/L (21-32); CHLORIDE LEVEL 114 MEQ/L (98-107); CREATININE FOR GFR 1.13 MG/DL (0.55-1.02); GLUCOSE, FASTING 89 MG/DL (70-105); SODIUM LEVEL 142 MEQ/L (136-145)
[2017-02-25 17:21] LABS: MAGNESIUM LEVEL 2.3 MG/DL (1.8-2.4); PHOSPHORUS LEVEL 3.9 MG/DL (2.5-4.9)
[2017-02-25 17:22] VITALS: BP 120/74
--- NOTE | 2017-02-26 08:16 | ECGEPIP ---
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
== END 2017-02-25 17:58 | disposition home or self-care (01) ==
LOC: M ED 16:17
DX: R20.9 Unspecified disturbances of skin sensation (principal); F42.9 Obsessive-compulsive disorder, unspecified; F41.9 Anxiety disorder, unspecified; F33.9 Major depressive disorder, recurrent, unspecified; F60.3 Borderline personality disorder; F29 Unspecified psychosis not due to a substance or known physiological condition; Z79.899 Other long term (current) drug therapy; Z79.82 Long term (current) use of aspirin; Z91.030 Bee allergy status; Z91.018 Allergy to other foods; Z88.0 Allergy status to penicillin; Z88.1 Allergy status to other antibiotic agents; Z88.2 Allergy status to sulfonamides; Z88.8 Allergy status to other drugs, medicaments and biological substances

== ENCOUNTER → 2017-04-11 | Outpatient (REF) | payer MEDICARE, MEDICAID ==
[~2017-04-11] MED LIST changes: +ASPI1TAB15 PO; -ASPI81TA7 PO; -CLOZ100T14 PO; +CRAN500C2 PO; +FLUT1SPR2; +LAMI1TAB9 PO; -LAMI200T3 PO; +NORT25CA2 PO; +TOPI100T9 PO; -TOPI1TAB31 PO; -TOPI200T4 PO; +TOPI200T7 PO; +[UNRECOGNIZED DRUG - CODE] PO
== END ==
LOC: M SFHCCAPE 13:29
PROVIDERS: ATTEND Physician Assistant
DX: M54.9 Dorsalgia, unspecified (principal); F31.12 Bipolar disorder, current episode manic without psychotic features, moderate; M43.16 Spondylolisthesis, lumbar region; M48.06 Spinal stenosis, lumbar region; M51.36 Other intervertebral disc degeneration, lumbar region; R11.2 Nausea with vomiting, unspecified; G47.9 Sleep disorder, unspecified
CPT/HCPCS: 81001; 81002; 87086; G0463

== ENCOUNTER 2017-04-18 10:25 | Emergency (ER) | payer MEDICARE, MEDICAID ==
[~2017-04-18] VITALS: Ht 157.5 cm; Wt 83.6 kg
[~2017-04-18 10:25] MED LIST changes: -CRAN500C2 PO; -FLUT1SPR2; -NORT25CA2 PO
[2017-04-18] MEDS ORDERED: CRAN500C2 PO (10:43)
[2017-04-18] MEDS ORDERED: NORT25CA2 PO (10:43)
[2017-04-18] MEDS ORDERED: FLUT1SPR2 (10:43)
[2017-04-18] MEDS ORDERED: NS 1,000 ML IV ONE (11:45)
[2017-04-18] MEDS ORDERED: ONDANSETRON 4MG/2ML VIAL (J2405) IV ONE (11:45)
[2017-04-18 12:12] LABS: BASO # 0.1 K/mm3 (0.0-0.2); BASO % 0.7 % (0.0-1.0); EOS # 0.2 K/mm3 (0.0-0.50); EOS % 2.3 % (0.0-3.0); LARGE UNSTAINED CELL # 0.1 K/mm3 (0.0-0.4); LARGE UNSTAINED CELL % 1.1 % (0.0-4.0); LYMPH # 1.8 K/mm3 (1.5-4.5); LYMPH % 18.4 % (24.0-44.0); MEAN CORPUSCULAR HEMOGLOBIN 30.1 pg (27.0-33.0); MEAN CORPUSCULAR HGB CONC 32.9 g/dl (32.0-36.5); MEAN CORPUSCULAR VOLUME 91.5 fl (80.0-96.0); MONO # 0.5 K/mm3 (0.0-0.8); MONO % 5.1 % (0.0-5.0); NEUTROPHILS # 6.8 K/mm3 (1.8-7.7); NEUTROPHILS % 72.3 % (36.0-66.0); PLATELET COUNT, AUTOMATED 292 k/mm3 (150-450); RED CELL DISTRIBUTION WIDTH 12.6 % (11.5-14.5); WHITE BLOOD COUNT 9.4 K/mm3 (4.0-10.0)
[2017-04-18 13:53] LABS: ANION GAP 6 MEQ/L (8-16); BLOOD UREA NITROGEN 11 MG/DL (7-18); CARBON DIOXIDE LEVEL 25 MEQ/L (21-32); CHLORIDE LEVEL 103 MEQ/L (98-107); CREATININE FOR GFR 0.95 MG/DL (0.55-1.02); GLOMERULAR FILTRATION RATE > 60.0 (>51); GLUCOSE, FASTING 88 MG/DL (70-105); SODIUM LEVEL 134 MEQ/L (136-145)
[2017-04-18 13:54] LABS: ALBUMIN/GLOBULIN RATIO 1.29 (1.00-1.93); ALKALINE PHOSPHATASE 77 U/L (45-117); ALT/SGPT 34 U/L (12-78); AST/SGOT 15 U/L (15-37); BILIRUBIN,DIRECT < 0.1 MG/DL (0.0-0.2); BILIRUBIN,TOTAL 0.4 MG/DL (0.2-1.0); CALCIUM LEVEL 9.6 MG/DL (8.5-10.1); LITHIUM LEVEL 1.28 MEQ/L (0.60-1.20); TOTAL PROTEIN 7.1 GM/DL (6.4-8.2)
[2017-04-18 14:28] VITALS: BP 96/58
== END 2017-04-18 14:49 | disposition home or self-care (01) ==
LOC: M ED 10:25
DX: R79.0 Abnormal level of blood mineral (principal); R11.2 Nausea with vomiting, unspecified; E78.4 Other hyperlipidemia
CPT/HCPCS: 80048; 80076; 80175; 80178; 83690; 84443; 85025; 96361; 96374; 99283; J2405

== ENCOUNTER 2017-04-19 07:00 | Emergency (ER) | payer MEDICARE, MEDICAID ==
[~2017-04-19] VITALS: Ht 157.5 cm; Wt 83.6 kg
[~2017-04-19 07:00] MED LIST changes: +CRAN500C2 PO; +FLUT1SPR2; +NORT25CA2 PO
[2017-04-19] MEDS ORDERED: KETOROLAC 30 MG/ML VIAL (J1885) IV ONE (07:45)
[2017-04-19] MEDS ORDERED: ONDANSETRON 4MG/2ML VIAL (J2405) IV ONE (07:45)
[2017-04-19] MEDS ORDERED: NS 1,000 ML IV ONE ×3 (07:45→11:00)
[2017-04-19 08:03] LABS: BASO # 0.1 K/mm3 (0.0-0.2); BASO % 0.7 % (0.0-1.0); EOS # 0.2 K/mm3 (0.0-0.50); EOS % 2.2 % (0.0-3.0); LARGE UNSTAINED CELL # 0.1 K/mm3 (0.0-0.4); LARGE UNSTAINED CELL % 1.6 % (0.0-4.0); LYMPH # 1.7 K/mm3 (1.5-4.5); MEAN CORPUSCULAR HEMOGLOBIN 30.4 pg (27.0-33.0); MEAN CORPUSCULAR HGB CONC 33.2 g/dl (32.0-36.5); MEAN CORPUSCULAR VOLUME 91.7 fl (80.0-96.0); MONO # 0.4 K/mm3 (0.0-0.8); MONO % 5.6 % (0.0-5.0); NEUTROPHILS # 5.3 K/mm3 (1.8-7.7); NEUTROPHILS % 68.8 % (36.0-66.0); PLATELET COUNT, AUTOMATED 302 k/mm3 (150-450); RED CELL DISTRIBUTION WIDTH 12.6 % (11.5-14.5); WHITE BLOOD COUNT 7.7 K/mm3 (4.0-10.0)
[2017-04-19 08:30] LABS: ALBUMIN 3.8 GM/DL (3.2-5.2); ALBUMIN/GLOBULIN RATIO 1.03 (1.00-1.93); ALKALINE PHOSPHATASE 80 U/L (45-117); ALT/SGPT 34 U/L (12-78); AMYLASE 50 U/L (25-115); ANION GAP 11 MEQ/L (8-16); AST/SGOT 18 U/L (15-37); BILIRUBIN,DIRECT < 0.1 MG/DL (0.0-0.2); BILIRUBIN,TOTAL 0.3 MG/DL (0.2-1.0); BLOOD UREA NITROGEN 11 MG/DL (7-18); CALCIUM LEVEL 9.3 MG/DL (8.5-10.1); CARBON DIOXIDE LEVEL 23 MEQ/L (21-32); CHLORIDE LEVEL 108 MEQ/L (98-107); CREATININE FOR GFR 0.82 MG/DL (0.55-1.02); GLOMERULAR FILTRATION RATE > 60.0 (>51); GLUCOSE, FASTING 94 MG/DL (70-105); POTASSIUM SERUM 4.1 MEQ/L (3.5-5.1); SODIUM LEVEL 142 MEQ/L (136-145); TOTAL PROTEIN 7.5 GM/DL (6.4-8.2)
[2017-04-19] MEDS ORDERED: METOCLOPRAMIDE INJ 10MG/2ML VIAL (J2765) IV ONE (08:45)
[2017-04-19 12:43] VITALS: BP 125/74
--- NOTE | 2017-04-21 02:11 | ECGEPIP ---
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
== END 2017-04-19 12:49 | disposition home or self-care (01) ==
LOC: M ED 07:00
DX: E86.0 Dehydration (principal); R11.2 Nausea with vomiting, unspecified; E78.4 Other hyperlipidemia
CPT/HCPCS: 80048; 80076; 80178; 82150; 83605; 83690; 84443; 85025; 93005; 96361; 96374; 96375; 99284; J1885; J2405; J2765

== ENCOUNTER → 2017-04-27 | Outpatient (CLI) | payer MEDICARE, MEDICAID | LOC: M LAB 12:40 | PROVIDERS: ATTEND Physician Assistant Medical | DX: F31.9 Bipolar disorder, unspecified (principal); Z51.81 Encounter for therapeutic drug level monitoring ==

== ENCOUNTER → 2017-07-13 | Outpatient (CLI) | payer MEDICARE, MEDICAID ==
[2017-07-13 17:49] LABS: BASO # 0.1 10^3/uL (0.0-0.2); EOS # 0.3 10^3/uL (0.0-0.50); EOS % 4.3 % (0.0-3.0); IMMATURE GRANULOCYTE % 0.3 % (0-0); LYMPH # 2.2 10^3/uL (1.5-4.5); LYMPH % 37.4 % (24.0-44.0); MEAN CORPUSCULAR HEMOGLOBIN 28.9 pg (27.0-33.0); MEAN CORPUSCULAR HGB CONC 31.4 g/dl (32.0-36.5); MEAN CORPUSCULAR VOLUME 91.9 fl (80.0-96.0); MONO # 0.4 10^3/uL (0.0-0.8); MONO % 7.1 % (0.0-5.0); NEUTROPHILS # 2.9 10^3/uL (1.8-7.7); NEUTROPHILS % 49.9 % (36.0-66.0); PLATELET COUNT, AUTOMATED 284 10^3/uL (150-450); RED CELL DISTRIBUTION WIDTH 13.2 % (11.5-14.5); WHITE BLOOD COUNT 5.8 10^3/uL (4.0-10.0)
== END ==
LOC: M WUC 11:06
PROVIDERS: ATTEND Nurse Practitioner Psychiatric/Mental Health
DX: F20.9 Schizophrenia, unspecified (principal)

== ENCOUNTER 2017-08-18 11:19 | Emergency (ER) | payer MEDICARE, MEDICAID ==
[~2017-08-18] VITALS: Ht 157.5 cm; Wt 90.0 kg
[2017-08-18] MEDS ORDERED: OXYC1TAB23 PO (11:40)
[2017-08-18] MEDS ORDERED: PRAZ2CAP PO (11:40)
[2017-08-18] MEDS ORDERED: GABA600T PO (11:40)
[2017-08-18] MEDS ORDERED: PROP40TA PO (11:40)
[2017-08-18] MEDS ORDERED: MEDR4PAK PO (12:43)
[2017-08-18] MEDS ORDERED: methylPREDNISolone INJ 125 MG/2 ML VIAL (J2930) IM ONE (12:45)
[2017-08-18 13:19] VITALS: BP 108/66
== END 2017-08-18 13:46 | disposition home or self-care (01) ==
LOC: M ED 11:19
DX: M25.551 Pain in right hip (principal); M25.552 Pain in left hip; G89.29 Other chronic pain; I10 Essential (primary) hypertension; F31.9 Bipolar disorder, unspecified; F60.9 Personality disorder, unspecified; Z85.41 Personal history of malignant neoplasm of cervix uteri; R51 Headache; Z88.8 Allergy status to other drugs, medicaments and biological substances; Z79.899 Other long term (current) drug therapy; Z79.82 Long term (current) use of aspirin
CPT/HCPCS: 96372; 99284; J2930

== ENCOUNTER → 2017-09-03 | Outpatient (REF) | payer MEDICARE, MEDICAID ==
[~2017-09-03] MED LIST changes: +GABA600T PO; +MEDR4PAK PO; +OXYC1TAB23 PO; +PRAZ2CAP PO; +PROP40TA PO
== END ==
LOC: M LAB REF 13:54
PROVIDERS: ATTEND Surgery
DX: C44.612 Basal cell carcinoma of skin of right upper limb, including shoulder (principal)

== ENCOUNTER → 2018-02-20 | Outpatient (REF) | payer MEDICARE, MEDICAID ==
[2018-02-20 19:14] LABS: APPEARANCE, URINE CLOUDY (CLEAR); BACTERIA, URINE AUTO 3+ (NEGATIVE); BILIRUBIN, URINE AUTO NEGATIVE (NEGATIVE); BLOOD, URINE BLOOD NEGATIVE (NEGATIVE); COLOR, URINE YELLOW (YELLOW); GLUCOSE, URINE (UA) AUTO NEGATIVE (NEGATIVE); KETONE, URINE AUTO NEGATIVE (NEGATIVE); LEUKOCYTE ESTERASE, URINE AUTO NEGATIVE (NEGATIVE); MUCUS, URINE SMALL (NEGATIVE); NITRITE, URINE AUTO NEGATIVE (NEGATIVE); PROTEIN, URINE AUTO NEGATIVE (NEGATIVE); RBC, URINE AUTO 2 /HPF (0-3); SPECIFIC GRAVITY URINE AUTO 1.016 (1.002-1.035); SQUAMOUS EPITHELIAL CELL UR AU 2 /HPF (0-6); UROBILINOGEN, URINE AUTO 0.2 mg/dL (0.0-2.0); WBC, URINE AUTO 7 /HPF (0-3)
== END ==
LOC: M SFHCCAPE 13:28
DX: R82.90 Unspecified abnormal findings in urine (principal)
CPT/HCPCS: 81001

== ENCOUNTER → 2018-03-25 | Outpatient (REF) | payer MEDICARE, MEDICAID | LOC: M LAB REF 12:10 | DX: C44.511 Basal cell carcinoma of skin of breast (principal) | CPT/HCPCS: 88305 ==

== ENCOUNTER → 2018-04-22 | Outpatient (REF) | payer MEDICARE, MEDICAID | LOC: M LAB REF 18:51 | DX: C44.612 Basal cell carcinoma of skin of right upper limb, including shoulder (principal) | CPT/HCPCS: 88305 ==

== ENCOUNTER → 2018-08-19 | Outpatient (REF) | payer MEDICARE, MEDICAID ==
[2018-08-19 16:58] LABS: ALBUMIN 3.6 GM/DL (3.2-5.2); ALBUMIN/GLOBULIN RATIO 1.29 (1.00-1.93); ALKALINE PHOSPHATASE 118 U/L (45-117); ALT/SGPT 37 U/L (12-78); ANION GAP 10 MEQ/L (8-16); AST/SGOT 21 U/L (7-37); BASO # 0.1 10^3/uL (0.0-0.2); BASO % 1.2 % (0.0-1.0); BILIRUBIN,TOTAL 0.3 MG/DL (0.2-1.0); BLOOD UREA NITROGEN 9 MG/DL (7-18); CALCIUM LEVEL 9.1 MG/DL (8.5-10.1); CARBON DIOXIDE LEVEL 24 MEQ/L (21-32); CHLORIDE LEVEL 110 MEQ/L (98-107); CREATININE FOR GFR 0.97 MG/DL (0.55-1.30); EOS # 0.2 10^3/uL (0.0-0.50); EOS % 4.3 % (0.0-3.0); GLOMERULAR FILTRATION RATE > 60.0 (>51); GLUCOSE, FASTING 114 MG/DL (70-100); HEMATOCRIT 38.6 % (36.0-47.0); HEMOGLOBIN 12.1 g/dl (12.0-15.5); IMMATURE GRANULOCYTE % 0.2 % (0-3.0); LYMPH # 1.2 10^3/uL (1.5-4.5); LYMPH % 27.8 % (24.0-44.0); MEAN CORPUSCULAR HEMOGLOBIN 27.6 pg (27.0-33.0); MEAN CORPUSCULAR HGB CONC 31.3 g/dl (32.0-36.5); MEAN CORPUSCULAR VOLUME 87.9 fl (80.0-96.0); MONO # 0.5 10^3/uL (0.0-0.8); MONO % 10.8 % (0.0-5.0); NEUTROPHILS # 2.3 10^3/uL (1.8-7.7); NEUTROPHILS % 55.7 % (36.0-66.0); PLATELET COUNT, AUTOMATED 245 10^3/uL (150-450); POTASSIUM SERUM 3.6 MEQ/L (3.5-5.1); RED BLOOD COUNT 4.39 10^6/uL (4.00-5.40); RED CELL DISTRIBUTION WIDTH 17.4 % (11.5-14.5); SODIUM LEVEL 144 MEQ/L (136-145); TOTAL PROTEIN 6.4 GM/DL (6.4-8.2); WHITE BLOOD COUNT 4.2 10^3/uL (4.0-10.0)
[2018-08-19 17:58] LABS: AMORPHOUS SEDIMENT SMALL (NEGATIVE); APPEARANCE, URINE TURBID (CLEAR); BACTERIA, URINE AUTO 2+ (NEGATIVE); BILIRUBIN, URINE AUTO 1+ (NEGATIVE); BLOOD, URINE BLOOD NEGATIVE (NEGATIVE); COLOR, URINE AMBER (YELLOW); GLUCOSE, URINE (UA) AUTO NEGATIVE (NEGATIVE); KETONE, URINE AUTO 2+ mg/dL (NEGATIVE); LEUKOCYTE ESTERASE, URINE AUTO NEGATIVE (NEGATIVE); MUCUS, URINE SMALL (NEGATIVE); NITRITE, URINE AUTO NEGATIVE (NEGATIVE); PROTEIN, URINE AUTO 2+ mg/dL (NEGATIVE); RBC, URINE AUTO 2 /HPF (0-3); SPECIFIC GRAVITY URINE AUTO 1.024 (1.002-1.035); SQUAMOUS EPITHELIAL CELL UR AU 35 /HPF (0-6); WBC, URINE AUTO 6 /HPF (0-3)
== END ==
LOC: M SFHCCAPE 10:12
DX: I95.1 Orthostatic hypotension (principal)
CPT/HCPCS: 80053

== ENCOUNTER → 2018-10-15 | Outpatient (REF) | payer MEDICARE, MEDICAID ==
[~2018-10-15] MED LIST changes: +BENZ-18; -BENZ100C5; -CLON1TAB PO; +CLON1TAB8 PO; -GABA600T PO; +GABA600T4 PO; +LORA-243 PO; -LORA10TA2 PO; -PROP40TA PO; +PROP40TA62 PO
== END ==
LOC: M SFHCCLAY 09:35
PROVIDERS: ATTEND Family Medicine
DX: Z12.4 Encounter for screening for malignant neoplasm of cervix (principal); Z87.410 Personal history of cervical dysplasia; Z91.89 Other specified personal risk factors, not elsewhere classified
CPT/HCPCS: G0123; G0463

== ENCOUNTER → 2018-11-05 | Outpatient (CLI) | payer MEDICARE, MEDICAID ==
--- NOTE | 2018-11-05 11:02 | REP ---
Pelvic ultrasound including transabdominal, endovaginal and Doppler ultrasound assessment for postmenopausal bleeding: The bladder is incompletely distended. The uterus is anteverted. The uterus is normal size measuring 8.0 by 4.7 x 5.3 cm. The myometrium is slightly heterogeneous. No focal fibroids are identified. The endometrium measures 5.7 mm, slightly thickened, upper normal is 5.0 mm in a post menopausal female. Right ovary: The right ovary measures 2.4 1.4 x 1.3 cm and is normal size. There is no dominant mass or cyst. There is vascular flow with the Doppler resistive index of the parenchymal arteries measuring 0.48. There is a trace of free fluid in the right adnexa. Left ovary: The left ovary is obscured by bowel gas and could not be visualized. The impression: Thickened endometrium as described. The left ovary is obscured by bowel and could not be visualized. Mildly heterogeneous myometrium. Otherwise, negative pelvic ultrasound. Electronically Signed by Vazquez Heaton MD 11/05/2018 10:53 A
--- NOTE | 2018-11-05 14:31 | REP ---
BILATERAL SCREENING MAMMOGRAM WITH 3D TOMOSYNTHESIS: COMPARISON: 11/26/2016 as well as other prior exams. [facility] lifetime risk of breast cancer is 6.8%. Breast parenchyma is moderately dense bilaterally. There appears to be a nodule, fairly well circumscribed in the outer left breast at about the 3 o'clock position in the mid third of the breasts, measuring 1.1 cm in diameter. I see no other definite mass bilaterally. No suspicious clusters of microcalcifications are seen. IMPRESSION: ACR 0 incomplete. There appears to be a well circumscribed nodule 3 o'clock left breast, in the mid third of the breast measuring about 1.1 cm in diameter. Recommend spot compression views and ultrasound to further evaluate. BIRADS 0: BI-RADS/ACR category 0 mammogram, Incomplete: Need additional imaging evaluation and/or prior mammograms for comparison. This mammogram was interpreted with the aid of an FDA-approved computer-aided detection system. The patient states she had a clinical breast exam in 09/2018. The patient letter being requested is M0. Electronically Signed by Vazquez Crenshaw MD 11/05/2018 08:10 P
== END ==
LOC: M RAD 09:39
PROVIDERS: ATTEND Family Medicine
DX: Z12.31 Encounter for screening mammogram for malignant neoplasm of breast (principal); N95.0 Postmenopausal bleeding; R92.2 Inconclusive mammogram; N85.4 Malposition of uterus; N85.00 Endometrial hyperplasia, unspecified

== ENCOUNTER → 2018-11-14 | Outpatient (CLI) | payer MEDICARE, MEDICAID ==
--- NOTE | 2018-11-14 19:22 | REP ---
LEFT BREAST ULTRASOUND: 11/14/2018. Comparison: Diagnostic left mammogram 11/14/2018, screening mammogram 11/05/2018. Clinical history: Nodular density 1-2 o'clock position. One third depth of the left breast upper outer quadrant partially well-circumscribed. Findings: There is heterogeneously dense echogenic tissue throughout the upper outer quadrant scanning through 12-3 o'clock position. There are multiple cysts seen. At the noon position there is a 6 x 6 x 4 mm cyst with a single septation 4.2 cm from the nipple. At 1 o'clock there is another cyst 1.3 x 1.2 x 0.6 cm about 2.3 cm from nipple. At 2 o'clock. There are small cluster of cysts 8 x 7 x 5 mm about 7 cm from nipple. At 3 o'clock there is a small cyst posterior to the nipple 6 x 5 x 4 mm. There is a hyperechoic focus at 2 o'clock 5 x 4 x 3 mm about 4 cm nipple most likely lipoma. Impression: 1. Multiple cysts in upper outer quadrant left breast heterogeneous echogenic dense breast tissue as seen on the mammogram. At the 1 o'clock position a 1.3 x 1.2 x 0.6 cm cyst is seen corresponding to the location and size of the mammographic finding. Other cysts noted in the small echogenic focus likely lipoma also seen. Please see mammogram report this date for final assessment recommendation. Electronically Signed by Mayo Thapa MD 11/14/2018 08:00 P
--- NOTE | 2018-11-14 19:25 | REP ---
DIAGNOSTIC DIGITAL LEFT MAMMOGRAM: 11/14/2018. Comparison: Left breast ultrasound 11/14/2018, mammogram 11/05/2018, 11/26/2016. Clinical history fairly well circumscribed medial margin of the nodular density upper outer quadrant left breast at the parenchymal fat interface one to two o'clock position. Spot magnified CC, MLO and true MLO images of the left breast were performed. A sharply circumscribed nodular density is again seen with the medial and posterior margins well circumscribed in the lateral margin ill-defined by dense parenchyma adjacent. This is at the 1 o'clock position. There is dense heterogeneous breast parenchyma noted without other visible nodules or masses by mammography. There are benign arterial calcifications in the breast. Left breast ultrasound: Multiple cysts are seen of which the largest is at the 1 o'clock position, 13 x 12 x 6 mm. There is a small 5 x 4 mm hyperechoic area on the ultrasound nearby most consistent with fatty findings such as lipoma. Other cysts are seen at noon, 2 and 3 o'clock. Impression: 1. BIRADS 2: BI-RADS/ACR category 2 mammogram. Benign Findings. No evidence malignancy, nodule in question persists on the spot magnified images but is seen as a simple cyst 13 x 12 x 6 mm by ultrasound. Other cysts seen in the parenchyma by ultrasound but not visible mammographically. 2. Recommend followup mammography 1 year. This mammogram was interpreted with the aid of an FDA-approved computer-aided detection system. The patient states she had a clinical breast exam on 10/15/2018. The patient letter being requested is M1, dense. [facility] lifetime risk assessment is 6.8%. Electronically Signed by Mayo Thapa MD 11/14/2018 08:01 P
== END ==
LOC: M RAD 14:08
PROVIDERS: ATTEND Family Medicine
DX: N60.12 Diffuse cystic mastopathy of left breast (principal)

== ENCOUNTER 2019-01-08 07:27 | Day surgery (SDC) | payer MEDICARE, MEDICAID ==
[~2019-01-08] VITALS: Ht 154.9 cm; Wt 75.7 kg
[~2019-01-08 07:27] MED LIST changes: +BIOT50004 PO; +CLOZ25TA24 PO; +FAMO20TA PO; +FLON1SPR; +FOLI400T PO; +LEVO88TA3 PO; -MULT1CHW39 PO; +MULT200T7 PO; +OXYC10TA3 PO; +SUMA4INJ4 SC; +VENTAER INH; +VITA500T17 PO
[2019-01-08] MEDS ORDERED: NS 1,000 ML IV ONE (08:00)
[2019-01-08] MEDS ORDERED: PROP40TA62 PO (08:00)
[2019-01-08] MEDS ORDERED: PROPOFOL 200 MG/20 ML VIAL As Ordered ONE (08:38)
--- NOTE | 2019-01-08 08:57 | ROOR ---
Patient Name: Maria Isabel Ashley Procedure Date: 01/08/2019 8:33 AM Date of : 1965 Age: 53 Room: [facility] Gender: Female Note Status: Finalized Procedure: Colonoscopy Indications: Screening for colorectal malignant neoplasm Providers: Abdi ALVARADO MD Referring MD: Mike Sloan MD Requesting Provider: Medicines: Monitored Anesthesia Care Complications: No immediate complications. Procedure: Pre-Anesthesia Assessment: - The heart rate, respiratory rate, oxygen saturations, blood pressure, adequacy of pulmonary ventilation, and response to care were monitored throughout the procedure. The Colonoscope was introduced through the anus and advanced to the terminal ileum, with identification of the appendiceal orifice and IC valve. The colonoscopy was performed without difficulty. The patient tolerated the procedure well. The quality of the bowel preparation was good. Findings: The perianal and digital rectal examinations were normal. Multiple diverticula were found in the sigmoid colon. There was evidence of diverticular spasm. Small Internal Hemorrhoids. The entire examined colon appeared normal on direct and retroflexion views. Impression: - Mild/moderate diverticulosis in the sigmoid colon. - Small Internal Hemorrhoids. - The entire colon is otherwise normal on direct and retroflexion views. - No specimens collected. Recommendation: - Repeat colonoscopy in 10 years for screening purposes. Abdi Alvarado MD Abdi ALVARADO MD 01/08/2019 8:57:18 AM Electronically signed by Abdi ALVARADO MD Number of Addenda: 0 Note Initiated On: 01/08/2019 8:33 AM Estimated Blood Loss: Estimated blood loss: none.
[2019-01-08 09:19] VITALS: BP 100/67
== END 2019-01-08 09:19 | disposition home or self-care (01) ==
LOC: M OPP 07:27
PROVIDERS: ATTEND Internal Medicine Gastroenterology
DX: K57.30 Diverticulosis of large intestine without perforation or abscess without bleeding (principal); K64.8 Other hemorrhoids; Z12.11 Encounter for screening for malignant neoplasm of colon

== ENCOUNTER → 2019-07-03 | Outpatient (CLI) | payer MEDICARE, MEDICAID | LOC: M LAB 13:52 | PROVIDERS: ATTEND Physician Assistant Medical | DX: R51 Headache (principal) ==

== ENCOUNTER → 2019-07-27 | Outpatient (CLI) | payer MEDICARE, MEDICAID ==
[~2019-07-27] MED LIST changes: +ACET-897 PO; +AIMO70IN IM; +BOTO10VL IM; +CALC1TAB74 PO; +CENT1TAB PO; +CETI10TA PO; +CLOZ100T2 PO; +CLOZ50TA PO; +FOLI0.8T2 PO; +HM C500T3 PO; +LORA0.5T11 PO; +NORT50CA PO; +SM HTAB3 PO; +VITA500S3 SL; +XANA0.5T PO
--- NOTE | 2019-07-27 14:30 | REP ---
RIGHT KNEE SERIES: Five views. HISTORY: Acute pain in the right knee. FINDINGS: Five views of the right knee demonstrate a normal fabella posterolaterally. There is old calcification along the course of the medial collateral ligament consistent with previous injury this structure. There is lateral patellar spurring on the sunrise view. IMPRESSION: Early patellofemoral osteoarthritis. Evidence of an old injury of medial collateral ligament. No acute bony abnormality. Electronically Signed by Sharath Chew MD 07/27/2019 06:50 P
== END ==
LOC: M CLY 13:44
PROVIDERS: ATTEND Family Medicine
DX: M17.11 Unilateral primary osteoarthritis, right knee (principal); M25.561 Pain in right knee
CPT/HCPCS: 73564; G0463

== ENCOUNTER 2019-08-07 11:00 | Inpatient (IN) | payer MEDICARE, MEDICAID ==
[~2019-08-07] VITALS: Ht 154.9 cm; Wt 66.2 kg
[~2019-08-07 11:00] MED LIST changes: -ACET-897 PO; -AIMO70IN IM; -BOTO10VL IM; -CALC1TAB74 PO; -CENT1TAB PO; -CETI10TA PO; -CLOZ100T2 PO; -CLOZ50TA PO; -FOLI0.8T2 PO; -HM C500T3 PO; -LORA0.5T11 PO; -NORT50CA PO; -SM HTAB3 PO; -VITA500S3 SL; -XANA0.5T PO
[2019-08-07 11:40] LABS: HEMATOCRIT 35.6 % (36.0-47.0); HEMOGLOBIN 11.2 g/dl (12.0-15.5); MEAN CORPUSCULAR HEMOGLOBIN 27.3 pg (27.0-33.0); MEAN CORPUSCULAR HGB CONC 31.5 g/dl (32.0-36.5); MEAN CORPUSCULAR VOLUME 86.8 fl (80.0-96.0); PLATELET COUNT, AUTOMATED 256 10^3/uL (150-450)
[2019-08-07] MEDS ORDERED: BOTO10VL IM (11:40)
[2019-08-07] MEDS ORDERED: AIMO70IN IM (11:40)
--- NOTE | 2019-08-07 11:40 | REP ---
Portable chest x-ray: Sitting AP view. History: CVA. Comparison chest x-ray: February 02, 2017. Findings: There is a large dense new infiltrate in the right lung base. This partially obscures the right heart border and right lower lobe. May be right lower lobe or right middle lobe. Findings are consistent with pneumonia. Left lung is clear. Pleural angles are sharp. Heart is not enlarged. Impression: Large infiltrate in the right base consistent with pneumonia. Electronically Signed by Sharath Chew MD 08/07/2019 11:31 A
--- NOTE | 2019-08-07 11:41 | REP ---
CT brain: 08/07/2019. Indication: Stroke. Comparison: 02/02/2017. Technique: Unenhanced axial CT images of the brain were obtained from skull base to vertex. Findings: There is no acute intracranial hemorrhage, acute cortical infarction, mass effect or hydrocephalous. Impression: No acute intracranial process. Electronically Signed by Willie Landaverde DO 08/07/2019 11:33 A
[2019-08-07 11:50] LABS: INR 0.96; PROTHROMBIN TIME 12.5 SECONDS (11.8-14.0)
[2019-08-07 11:51] LABS: PARTIAL THROMBOPLASTIN TIME 24.1 SECONDS (25.0-38.4)
[2019-08-07 12:01] LABS: LYMPHOCYTES 11 % (16-44); MONOCYTES 2 % (0-5); NEUTROPHILS 84 % (28-66)
[2019-08-07 12:02] LABS: PLATELET ESTIMATE NORMAL (NORMAL)
[2019-08-07 12:04] LABS: CK-MB VALUE MASS 1.2 NG/ML (<3.6); CPK CREATINE PHOSPHOKINASE 55 U/L (26-192); MB/CK RELATIVE INDEX 2.18 (< OR =4); TROPONIN I < 0.02 NG/ML (< 0.10)
[2019-08-07] MEDS ORDERED: NS 1,000 ML IV ONE ×2 (12:15→14:00)
[2019-08-07] MEDS ORDERED: IPRATROPIUM 0.5MG/ALBUTEROL 2.5MG INH SOL UD 3ML (DUONEB)(J7620) NEB ONE (12:15)
[2019-08-07] MEDS ORDERED: ALBUTEROL SULFATE 2.5 MG/0.5 ML INH NEB SOLN INH ONE (12:15)
[2019-08-07] MEDS ORDERED: methylPREDNISolone INJ 125 MG/2 ML VIAL (J2930) IV ONE (12:15)
[2019-08-07] MEDS ORDERED: AZITHROMYCIN INJ 500 MG, VIAL MATE ADAPTER 1 EACH in D5W 250 ML IV ONE (12:45)
[2019-08-07] MEDS ORDERED: cefTRIAXone SOD 2 GM in D5W MINI-BAG PLUS 50 ML IV ONE (12:45)
[2019-08-07] MEDS ORDERED: ISOVUE-370 76% 100ML VIAL (Q9967) As Ordered ONE (12:46)
[2019-08-07] MEDS ORDERED: XANA0.5T PO (13:01)
[2019-08-07] MEDS ORDERED: ALPRAZolam 0.5 MG TAB PO ONE (13:15)
[2019-08-07 13:18] LABS: ALBUMIN 3.3 GM/DL (3.2-5.2); BILIRUBIN,DIRECT 0.1 MG/DL (0.0-0.2); BILIRUBIN,TOTAL 0.7 MG/DL (0.2-1.0); TOTAL PROTEIN 6.5 GM/DL (6.4-8.2)
--- NOTE | 2019-08-07 13:27 | REP ---
CT pulmonary angiogram: With IV contrast. History: Shortness of breath. Pneumonia. Comparison studies: Comparison is made with today's chest x-ray. Contrast dose: 75 mL of Isovue [address] technique: Helical scanning is acquired and overlapping 1.5 mm and contiguous 3 mm axial images are reformatted. In addition, maximum intensity projection and multiplanar re-formation images are generated in sagittal and coronal imaging projections. CT pulmonary angiographic findings: Digital preliminary banquet server radiograph demonstrates the previously noted infiltrate in the right base and a diffuse pulmonary edema pattern throughout the lung wetzel. This latter finding is new. There is good opacification of the pulmonary arterial tree. There is no CT evidence of pulmonary embolism. Thoracic aorta is unremarkable. No aneurysm or dissection is seen. No vessel cutoff or filling defect seen on maximum intensity projection images. There is diffuse alveolar perihilar pattern of consolidation in the lung wetzel right greater than left consistent with pulmonary edema, possibly superimposed on pneumonia in the right lung. No pleural or pericardial effusion is seen. No hilar or mediastinal mass or adenopathy is observed. The patient is status post gastric bypass surgery. The visualized upper abdominal structures are otherwise unremarkable. Impression: No CT evidence of pulmonary embolus. Diffuse severe alveolar edema pattern in the lung parenchyma increased from the radiographs done earlier. There is more confluent consolidation in the right lower lobe and right middle lobe, question superimposed pneumonia. Electronically Signed by Sharath Chew MD 08/07/2019 06:37 P
[2019-08-07 13:47] LABS: NT-PRO BNP 78 PG/ML (<125)
[2019-08-07] MEDS ORDERED: LAMO100T PO (14:00)
[2019-08-07] MEDS ORDERED: SM HTAB3 PO (14:00)
[2019-08-07] MEDS ORDERED: CLOZ100T2 PO (14:00)
[2019-08-07] MEDS ORDERED: CENT1TAB PO (14:00)
[2019-08-07] MEDS ORDERED: HM C500T3 PO (14:00)
[2019-08-07] MEDS ORDERED: FOLI0.8T2 PO (14:00)
[2019-08-07] MEDS ORDERED: ACET-897 PO (14:00)
[2019-08-07] MEDS ORDERED: LORA0.5T11 PO (14:00)
[2019-08-07] MEDS ORDERED: VITA500S3 SL (14:00)
[2019-08-07] MEDS ORDERED: CALC1TAB74 PO (14:00)
[2019-08-07] MEDS ORDERED: CLOZ50TA PO (14:00)
[2019-08-07] MEDS ORDERED: NORT50CA PO (14:00)
[2019-08-07] MEDS ORDERED: IPRATROPIUM 0.5MG/ALBUTEROL 2.5MG INH SOL UD 3ML (DUONEB)(J7620) INH PRN (15:45)
[2019-08-07] MEDS ORDERED: FLUTICASONE PROP 0.05% NASAL SPRAY 16 GM (FLONASE) PRN (16:00)
[2019-08-07] MEDS ORDERED: ACETAMINOPHEN 500 MG TAB PO PRN (16:00)
[2019-08-07] MEDS ORDERED: LORazepam 0.5 MG TAB PO PRN (16:00)
[2019-08-07] MEDS: ALPRAZolam 0.5 MG TAB PO PRN ×2 (16:47→22:51)
[2019-08-07] MEDS: GABAPENTIN 300 MG CAP PO SCH ×2 (16:47→22:49)
--- NOTE | 2019-08-07 16:54 | HPEPDOC ---
[facility] Medical History & Physical Date of Admission Aug 07, 2019 Date of Service: Aug 07, 2019 Primary Care Physician: Brenton Zee M.D. Attending Physician: LONNIE SHINE MD History and Physical CHIEF COMPLAINT: Shortness of breath HISTORY OF PRESENT ILLNESS: Maria Isabel Ashley is a 53-year-old white female with a pertinent past medical history of cervical cancer, bipolar, borderline OCD, anxiety and migraines presenting with a chief complaint of shortness of breath. She describes that she's had a headache for the past week that has been different than her normal migraines. She describes the pain being behind her eyes and in her neck. Yesterday evening while watching TV. She claims she had a period of altered mental status where she was unable to recognize the TV remote and unable to recognize her friend. At 4 AM she claims she developed a nonproductive cough and experienced chills. She subsequently called her primary care physician who recommended she go to the ER. She has not had any recent sick contacts. She has not had the flu vaccine. She claims her only change in medication was a increase in her dose of clozapine one-month ago. She has a significant history of illicit drug use. She claims she quit 14 years ago. On admission to the ER she was found to have blood pressure of 82/50, which resolved to 108/62, with 2 L of normal saline. PAST MEDICAL HISTORY: 1. Cervical cancer (surgical resection). 2. Bipolar. 3.Borderline personality Disorder 4.OCD 5.Anxiety 6MIgraines. PAST SURGICAL HISTORY: 1. Tubal ligation. 2. Left foot repair surgery SOCIAL HISTORY: Patient has a significant history of illicit drug use. She claims she quit 14 years ago. She denies smoking. She has a history of heavy drinking. However, she no longer consumes alcohol FAMILY HISTORY: Father:. History of smoking ALLERGIES: Please see below. REVIEW OF SYSTEMS: CONSTITUTIONAL: Chills, sweats. No changes in weight, nausea, vomiting, weakness HEENT:. Headache. Describes a visual aura. Denies vertigo. No recent trauma, lightheadedness or changes in vision CARDIOVASCULAR:. Denies any chest pain, palpitations, leg edema. RESPIRATORY:, Nonproductive cough, shortness of breath, denies wheezing, hemoptysis, sputum production. GASTROINTESTINAL:, Denies nausea, vomiting, diarrhea, melena, constipation. GENITOURINARY:. Denies any problems urinating. SKIN:. No skin changes. MUSCULOSKELETAL: No muscle weakness noted. NEUROLOGICAL:. Describes tingling and numbness in upper extremities and face. PSYCHIATRIC:. Past history of bipolar disorder, borderline personality disorder, OCD, anxiety. ENDOCRINE: History of hypothyroidism. HEMATOLOGIC/LYMPHATIC:. Describes history of cervical cancer. HOME MEDICATIONS: Please see below. PHYSICAL EXAMINATION: VITAL SIGNS: (See below) GENERAL: Patient is pleasant and cooperative, sitting up comfortably in bed, alert and oriented in no acute distress, speaking in full complete sentences. No accessory muscle use HEENT: Normocephalic, atraumatic. No scleral icterus. PERRLA. EOMI. no nasal discharge. Oral mucosa is pink and moist. No tracheal deviation. No obvious swollen lymph nodes CARDIOVASCULAR: Regular rate and rhythm. Normal S1 and S2. No murmurs, gallops or rubs noted RESPIRATORY: Symmetrical chest wall movement. Crackles noted throughout left lung. Decreased lung sounds were noted in right middle and lower lobes. No rhonchi noted ABDOMINAL:. No obvious lesions noted. Normal bowel sounds in all 4 quadrants. No pain, tenderness, guarding or rigidity EXTREMITIES:. 2/4 pulses noted throughout. No leg swelling or tenderness NEUROLOGICAL: A&O x3. CN II-XII intact. Normal sensation to touch in face, UE. 5/5 muscle strength noted throughout. Spontaneous movements of all extremities. No focal deficits noted PSYCHOLOGICAL: Mood and affect were appropriate LABORATORY DATA: See below. IMAGIN08/07/[address]: No acute intracranial process. 08/07/2019. Chest x-ray: Large infiltrate in the right base consistent with pneumonia. 08/07/2019 CTA: No CT evidence of pulmonary embolus. Diffuse severe alveolar edema pattern in the lung parenchyma increased from the radiographs done earlier more confluent consolidation in the right lower lobe and right middle lobe. Question superimposed pneumonia MICROBIOLOGY: Please see below. ASSESSMENT:. This is a 53-year-old white female with past medical history of cervical cancer, bipolar disorder, borderline personality maladie disorder, OCD, anxiety and migraines presenting with shortness of breath and hypotension, found to have right lower lobe pneumonia. She will be treated appropriately . PLAN: #Lactic Acidosis 2/2 PNA -Pt does not meet SIRS criteria, however, patient was hypotensive on presentation unresponsive to fluids. We'll continue to monitor for sepsis -Lactic acid noted to be 2.7, will repeat -Given 2L IV NS -Treating PNA (see below) -No elevated white count. Hypotensive, tachycardic, elevated LA, site of infection. -Respiratory panel ordered -Duonebs prn -Sputum Cx ordered -O2 therapy -Influenza Screen -Empiric treatment with Azithromycin and Ceftriaxone #Hypotension -BP of 82/50 on admission -Resolved to 108/62 post 2L NS -Pt normally runs low 110s Systolic -Repeat Vitals q4hrs #Hypothyroidism -Continue home meds #Bipolar -Continue home meds -Continue monitoring CBC w/ Diff for agranulocytosis 2/ to Clozapine #Anxiety -Continue home meds #Migraines -Given oxycodone prn DVT prophylaxis TEDS compression stockings Vital Signs Vital Signs Date Time Temp Pulse Resp B/P (MAP) Pulse Ox O2 Delivery O2 Flow Rate FiO2 08/07/19 15:00 100 18 99/59 (72) 96 Room Air 08/07/19 11:01 98.6 Laboratory Data Labs 24H Laboratory Tests 2 08/07/19 11:29: Nucleated Red Blood Cells % (auto) 0.0, Neutrophils 84H, Band Neutrophils 3, Lymphocytes (Manual) 11L, Monocytes (Manual) 2, Red Blood Cell Morphology NO RMAL, Platelet Estimate NORMAL, Prothrombin Time 12.5, Prothromb Time International Ratio 0.96, Activated Partial Thromboplast Time 24.1L, Total Creatine Kinase 55, Creatine Kinase MB 1.2, Creatine Kinase MB Relative Index 2.18, Troponin I < 0.02, DC-Oyw-R-Type Natriuretic Peptide 78 08/07/19 11:32: Bedside Glucose (Misc Panel) 132H 08/07/19 11:33: POC Glucose (Misc Panel) 117H, POC Sodium (Misc Panel) 142, POC Potassium (Misc Panel) 3.4L, POC Chloride (Misc Panel) 107, POC Total CO2 (Misc Panel) 24.0, POC Blood Urea Nitrogen (Misc Panel 13, POC Ionized Calcium (Misc Panel) 4.8, POC Creatinine (Misc Panel) 0.7, POC Hematocrit (Misc Panel) 34.0L 08/07/19 11:36: Bedside Prothrombin Time INR 1.3, Prothrombin Time (MISC) 15.5H 08/07/19 12:36: Lactic Acid Level 2.7*H, Total Bilirubin 0.7, Direct Bilirubin 0.1, Aspartate Amino Transf (AST/SGOT) 18, Alanine Aminotransferase (ALT/SGPT) 33, Alkaline Phosphatase 94, Total Protein 6.5, Albumin 3.3, Albumin/Globulin Ratio 1.03 08/07/19 13:40: POC pH (Misc Panel) 7.377, POC Base Excess (Misc Panel) -7.0L, POC Saturated Percent O2 (Misc) 94L, POC pO2 (Misc Panel) 69.0L, POC pCO2 (Misc Panel) 30.5L, POC HCO3 (Misc Panel) 17.9L, POC Total CO2 (Misc Panel) 19.0L CBC/BMP Laboratory Tests 08/07/19 11:29 Microbiology Microbiology 08/07/19 Blood Culture, Received Pending 08/07/19 Blood Culture, Received Pending Home Medications Scheduled Botulinum Toxin Type A (Botox) 100 Unit Vial, 1 DOSE IM ASDIRECTED Calcium Carbonate/Vitamin D3 (Calcium 600-Vit D3 400 Tablet) 1 Each Tablet, 1 TAB PO BID LUNCH AND DINNER Clozapine (Clozapine) 50 Mg Tablet, 50 MG PO QAM Clozapine (Clozapine) 100 Mg Tablet, 300 MG PO QHS Cranberry Fruit Extract (Cranberry) 500 Mg Tablet, 500 MG PO DAILY LUNCH Cyanocobalamin (Vitamin B-12) (Vitamin B-12) 500 Mcg Tab.subl, 500 MCG SL TID Erenumab-Aooe (Aimovig Autoinjector) 70 Mg/1 Ml Auto.injct, 70 MG IM QMONTH Famotidine (Famotidine) 20 Mg Tab, 20 MG PO BIDWM Folic Acid (Folic Acid) 0.8 Mg Tablet, 800 MCG PO DAILY LUNCH Gabapentin (Gabapentin) 600 Mg Tab, 600 MG PO TID Lamotrigine (Lamotrigine) 100 Mg Tablet, 100 MG PO BID Levothyroxine Sodium (Levothyroxine Sodium) 88 Mcg Tab, 88 MCG PO DAILY Montelukast Sodium (Montelukast Sodium) 10 Mg Tab, 10 MG PO QHS Multivit-Min/FA/Lycopen/Lutein (Centrum Silver Tablet) 1 Each Tablet, 2 TAB PO DAILY Multivitamin with Minerals (Hair, Skin and Nails) 1 Each Tablet, 3 TAB PO QPM Nortriptyline HCl (Nortriptyline HCl) 50 Mg Capsule, 50 MG PO QHS Prazosin Hcl (Prazosin HCl) 2 Mg Cap, 4 MG PO QHS Simvastatin (Simvastatin) 10 Mg Tab, 10 MG PO QHS Scheduled PRN Acetaminophen (Tylenol Extra Strength) 500 Mg Tablet, 1,500 MG PO BID PRN for PAIN Albuterol Sulfate (Ventolin Hfa) 108 Mcg/Act Aer, 2 PUFFS INH QID PRN for SOB/WHEEZING Alprazolam (Xanax) 0.5 Mg Tablet, 0.5 MG PO QID PRN for ANXIETY Fluticasone Propionate (Flonase Allergy Relief) 50 Mcg/Act Spr, 2 SPRAY NA DAILY PRN for NASAL CONGESTION Lorazepam (Lorazepam) 0.5 Mg Tablet, 0.5 MG PO DAILY PRN for ANXIETY Oxycodone HCl/Acetaminophen (Oxycodone-Acetaminophen 10-325) 1 Tab Tab, 1 TAB PO BID PRN for PAIN Sumatriptan Succinate (Sumatriptan Succinate) 4 Mg/0.5 Ml Inj, 4 MG SC DAILY PRN for MIGRAINE Allergies Coded Allergies: fluoxetine (Verified Adverse Reaction, Intermediate, loss of vision, 12/23/18) hydroxyzine (Verified Adverse Reaction, Mild, hyper, 12/23/18) ATTENDING NOTE I have personally evaluated and examined the patient. Discussed with residents and student regarding plan of care and agree with the above assessment and plan. A-FIB/CHADSVASC A-FIB History Current/History of A-Fib/PAF?: No KISHA PAIGE OMS-3 Aug 07, 2019 16:54 LONNIE SHINE MD Aug 07, 2019 19:24
[2019-08-07] MEDS: FAMOTIDINE 20 MG TAB PO SCH (18:30)
--- NOTE | 2019-08-07 19:10 | ECGEPIP ---
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
[2019-08-07] MEDS: PRAZOSIN 1 MG CAP PO SCH (21:00)
[2019-08-07 21:45] VITALS: BP 104/64
[2019-08-07] MEDS ORDERED: SODIUM CHLORIDE 0.9% 1000ML IV SCH (21:45)
[2019-08-07] MEDS: SIMVASTATIN 10 MG TAB PO SCH (22:49)
[2019-08-07] MEDS: lamoTRIgine 100MG TAB PO SCH (22:50)
[2019-08-07] MEDS: cloZAPine 100 MG TAB (S0136) PO SCH (22:50)
[2019-08-07] MEDS: NORTRIPTYLINE 25 MG CAP PO SCH (22:50)
[2019-08-07] MEDS: ENOXAPARIN 40 MG/0.4 ML SYRINGE (J1650) SC SCH (22:53)
[2019-08-07] MEDS: CALCIUM/VITAMIN D 500 MG TAB PO SCH (23:27)
[2019-08-07] MEDS: MONTELUKAST 10 MG TAB PO SCH (23:27)
[2019-08-07] MEDS: NS 1,000 ML IV SCH (23:28)
[2019-08-08] VITALS: BP 114/70
[2019-08-08] MEDS ORDERED: SUMAtriptan SUCCINATE 6 MG/0.5 ML VIAL SC ONE
[2019-08-08 03:43] LABS: HEMATOCRIT 29.2 % (36.0-47.0); HEMOGLOBIN 9.3 g/dl (12.0-15.5); MEAN CORPUSCULAR HEMOGLOBIN 27.7 pg (27.0-33.0); MEAN CORPUSCULAR HGB CONC 31.8 g/dl (32.0-36.5); MEAN CORPUSCULAR VOLUME 86.9 fl (80.0-96.0); PLATELET COUNT, AUTOMATED 253 10^3/uL (150-450); RED BLOOD COUNT 3.36 10^6/uL (4.00-5.40); WHITE BLOOD COUNT 16.1 10^3/uL (4.0-10.0)
[2019-08-08 04:00] VITALS: BP 90/52
[2019-08-08 04:05] LABS: BLOOD UREA NITROGEN 11 MG/DL (7-18); CALCIUM LEVEL 7.8 MG/DL (8.5-10.1); CARBON DIOXIDE LEVEL 23 MEQ/L (21-32); CHLORIDE LEVEL 116 MEQ/L (98-107); CREATININE FOR GFR 0.68 MG/DL (0.55-1.30); GLOMERULAR FILTRATION RATE > 60.0 (>51); GLUCOSE, FASTING 122 MG/DL (70-100); POTASSIUM SERUM 4.2 MEQ/L (3.5-5.1); SODIUM LEVEL 146 MEQ/L (136-145)
[2019-08-08 04:09] LABS: LYMPHOCYTES 10 % (16-44); METAMYELOCYTES 2 % (0-0); MONOCYTES 4 % (0-5); NEUTROPHILS 77 % (28-66)
[2019-08-08 04:10] LABS: PLATELET ESTIMATE NORMAL (NORMAL)
[2019-08-08] MEDS: LEVOTHYROXINE 88MCG TABLET (0.088 MG) PO SCH (06:39)
[2019-08-08 08:00] VITALS: BP 103/59
[2019-08-08] MEDS: NS 1,000 ML IV SCH ×2 (08:12→20:38)
[2019-08-08] MEDS: FAMOTIDINE 20 MG TAB PO SCH ×2 (08:12→17:10)
[2019-08-08] MEDS: MULTIVITAMINS/MINERALS THERAP 1 TAB PO SCH (08:12)
[2019-08-08] MEDS: lamoTRIgine 100MG TAB PO SCH ×2 (08:12→20:40)
[2019-08-08] MEDS: cloZAPine 25 MG TAB (S0136) PO SCH (08:12)
[2019-08-08] MEDS: GABAPENTIN 300 MG CAP PO SCH ×3 (08:13→20:40)
[2019-08-08] MEDS: oxyCODONE 5MG TAB PO PRN (08:13)
[2019-08-08 08:58] LABS: INFLUENZA A AMPLIFICATION NEGATIVE (NEGATIVE); INFLUENZA B AMPLIFICATION NEGATIVE (NEGATIVE)
--- NOTE | 2019-08-08 11:19 | IPNPDOC ---
Text Note Date of Service The patient was seen on 08/08/19. NOTE SUBJECTIVE: Patient was examined this morning. She had no acute complaints. Ov ernight she had a headache that was resolved with sumatriptan. Her home regimen include botox, and Erenumab injection once a month. She denies chest pain, no SOB, no increase cough. Her BP is stable, she reports that she runs in the low 100s at home. OBJECTIVE: PHYSICAL EXAMINATION: GENERAL APPEARANCE: female, resting comfortably in bed. Eating breakfast, alert and oriented 3 SKIN: Warm, well perfused. LUNGS: Clear to auscultation bilaterally. No wheezing, no rhochi HEART: Normal S1, S2. No murmurs, no rubs, no gallops ABDOMEN: Soft. No masses. Bowel sounds are present EXTREMITIES: Moves all extremities equally. No gross deformities. PULSES: 2+ upper and lower extremity LABORATORY DATA: Please see below. IMAGING: CT chest: No CT evidence of pulmonary embolus. Diffuse severe alveolar edema pattern in the lung parenchyma increased from the radiographs done earlier. There is more confluent consolidation in the right lower lobe and right middle lobe, question superimposed pneumonia. ASSESSMENT This is a 53-year-old white female with past medical history of cervical cancer, bipolar disorder, borderline personality maladie disorder, OCD, anxiety and migraines presenting with shortness of breath and hypotension, found to have right lower lobe pneumonia. She will be treated appropriately . PLAN: #Lactic Acidosis 2/2 PNA -Resolved, status post fluid bolus -Continue antibiotics for PNA (Empiric treatment with Azithromycin and Ceftriaxone) -Hemodynamically stable -Respiratory negative -Duonebs prn -Sputum Cx ordered -O2 therapy -Influenza Negative -Slight leukocytosis, this could be due to her steroids. We'll continue monitoring #Headaches -Sumatriptan #Hypotension -Status post fluid bolus -Stable with appropriate MAP #Hypothyroidism -Continue home meds #Bipolar -Continue home meds -Continue monitoring CBC w/ Diff for agranulocytosis 2/2 to Clozapine #Anxiety -Continue home meds #Migraines -Given oxycodone prn DVT prophylaxis . Ming ATTENDING NOTE I have personally evaluated and examined the patient. Discussed with residents and student regarding plan of care and agree with the above assessment and plan. VS,Fishbone, I+O VS, Fishbone, I+O Laboratory Tests 08/07/19 11:29 08/08/19 03:37 Vital Signs Date Time Temp Pulse Resp B/P (MAP) Pulse Ox O2 Delivery O2 Flow Rate FiO2 08/08/19 08:43 20 Room Air 08/08/19 08:00 98.2 82 103/59 (74) 97 I&O- Last 24 Hours up to 6 AM 08/08/19 06:00 Intake Total 2955 ml Output Total 675 ml Balance 2280 ml UZIEL WINSTON DO Aug 08, 2019 11:19 LONNIE SHINE MD Aug 08, 2019 15:22
[2019-08-08] MEDS: CALCIUM/VITAMIN D 500 MG TAB PO SCH ×2 (11:42→17:11)
[2019-08-08 12:00] VITALS: BP 112/63
[2019-08-08] MEDS ORDERED: SLF 3 ML SYR IV PRN (12:45)
[2019-08-08] MEDS: SUMAtriptan SUCCINATE 6 MG/0.5 ML VIAL SC PRN ×2 (12:51→21:49)
[2019-08-08] MEDS: cefTRIAXone SOD 1 GM in D5W MINI-BAG PLUS 50 ML IV SCH (12:51)
[2019-08-08] MEDS: SLF 3 ML SYR IV SCH ×2 (12:52→20:43)
[2019-08-08] MEDS: AZITHROMYCIN INJ 500 MG, VIAL MATE ADAPTER 1 EACH in D5W 250 ML IV SCH (13:58)
[2019-08-08 16:00] VITALS: BP 110/62
[2019-08-08] MEDS: ALPRAZolam 0.5 MG TAB PO PRN (17:10)
[2019-08-08 20:00] VITALS: BP 109/59
[2019-08-08] MEDS: NORTRIPTYLINE 25 MG CAP PO SCH (20:39)
[2019-08-08] MEDS: PRAZOSIN 1 MG CAP PO SCH (20:39)
[2019-08-08] MEDS: ENOXAPARIN 40 MG/0.4 ML SYRINGE (J1650) SC SCH (20:39)
[2019-08-08] MEDS: MONTELUKAST 10 MG TAB PO SCH (20:40)
[2019-08-08] MEDS: SIMVASTATIN 10 MG TAB PO SCH (20:40)
[2019-08-08] MEDS: cloZAPine 100 MG TAB (S0136) PO SCH (20:43)
[2019-08-09] VITALS: BP 127/80
[2019-08-09 04:00] VITALS: BP 118/75
[2019-08-09] MEDS: SLF 3 ML SYR IV SCH ×3 (05:51→21:22)
[2019-08-09] MEDS: LEVOTHYROXINE 88MCG TABLET (0.088 MG) PO SCH (05:51)
[2019-08-09 05:53] LABS: BASO % 0.3 % (0.0-1.0); EOS # 0.2 10^3/uL (0.0-0.5); EOS % 1.2 % (0.0-3.0); HEMATOCRIT 29.5 % (36.0-47.0); HEMOGLOBIN 8.9 g/dl (12.0-15.5); LYMPH # 2.1 10^3/uL (1.5-5.0); LYMPH % 14.4 % (24.0-44.0); MEAN CORPUSCULAR HEMOGLOBIN 26.7 pg (27.0-33.0); MEAN CORPUSCULAR HGB CONC 30.2 g/dl (32.0-36.5); MEAN CORPUSCULAR VOLUME 88.6 fl (80.0-96.0); MONO # 0.7 10^3/uL (0.0-0.8); MONO % 4.9 % (0.0-5.0); NEUTROPHILS # 11.5 10^3/uL (1.5-8.5); NEUTROPHILS % 78.4 % (36.0-66.0); PLATELET COUNT, AUTOMATED 241 10^3/uL (150-450); RED BLOOD COUNT 3.33 10^6/uL (4.00-5.40); WHITE BLOOD COUNT 14.6 10^3/uL (4.0-10.0)
[2019-08-09 06:11] LABS: BLOOD UREA NITROGEN 10 MG/DL (7-18); CALCIUM LEVEL 8.5 MG/DL (8.5-10.1); CARBON DIOXIDE LEVEL 25 MEQ/L (21-32); CHLORIDE LEVEL 116 MEQ/L (98-107); GLOMERULAR FILTRATION RATE > 60.0 (>51); GLUCOSE, FASTING 94 MG/DL (70-100); POTASSIUM SERUM 3.6 MEQ/L (3.5-5.1); SODIUM LEVEL 147 MEQ/L (136-145)
[2019-08-09] MEDS: IPRATROPIUM 0.5MG/ALBUTEROL 2.5MG INH SOL UD 3ML (DUONEB)(J7620) INH SCH ×4 (07:40→19:38)
[2019-08-09 08:00] VITALS: BP 104/64
[2019-08-09] MEDS: GABAPENTIN 300 MG CAP PO SCH ×3 (08:00→21:20)
[2019-08-09] MEDS: MULTIVITAMINS/MINERALS THERAP 1 TAB PO SCH (08:01)
[2019-08-09] MEDS: cloZAPine 25 MG TAB (S0136) PO SCH (08:01)
[2019-08-09] MEDS: FAMOTIDINE 20 MG TAB PO SCH ×2 (08:01→17:00)
[2019-08-09] MEDS: lamoTRIgine 100MG TAB PO SCH ×2 (08:01→21:20)
[2019-08-09] MEDS: SUMAtriptan SUCCINATE 6 MG/0.5 ML VIAL SC PRN ×2 (09:19→18:25)
[2019-08-09 12:00] VITALS: BP 102/80
[2019-08-09] MEDS: ALPRAZolam 0.5 MG TAB PO PRN ×2 (13:02→21:23)
[2019-08-09] MEDS: CALCIUM/VITAMIN D 500 MG TAB PO SCH ×2 (13:03→17:00)
[2019-08-09] MEDS: cefTRIAXone SOD 1 GM in D5W MINI-BAG PLUS 50 ML IV SCH (13:03)
[2019-08-09] MEDS: AZITHROMYCIN INJ 500 MG, VIAL MATE ADAPTER 1 EACH in D5W 250 ML IV SCH (13:37)
--- NOTE | 2019-08-09 14:11 | IPNPDOC ---
Date Seen The patient was seen on 08/09/19. Progress Note SUBJECTIVE: Patient reports feeling fine. Mostly talk about her anxiety and need for her xanax. States that she feels ok, possibly slightly better today. Afebrile overnight, BP stable. OBJECTIVE PHYSICAL EXAMINATION: VITAL SIGNS: Please see below. General: No acute distress, Alert, anxious Eyes: Normal sclera, EOMI, VAMSI HENT: Atraumatic Cardiovascular: Normal rate, normal rhythm. Pulmonary: Clear to auscultation b/l GI: Soft, nontender, nondistended Skin: Warm and dry Neuro: CN grossly intact. No focal deficits. Strengths equal b/l. Psych: oriented x 3 LABORATORY DATA, IMAGING STUDIES, MICROBIOLOGY: Please see below. DVT prophylaxis ordered?: Lovenox ASSESSMENT AND PLAN: 1. Community acquired pneumonia - c/w Azithromycin and ceftriaxone. - appears clinically improving. respiratory panel negative. - influenza negative. - Leukocytosis trending down, did had high dose solumedrol in ER upon arrival. 2. headaches - c/w sumatriptan 3. Anxiety - c/w home meds. 4. Hypothryoidism - c/w synthroid 5. Bipolar disorder - home med resumed VS, I&O, 24H, Fishbone Vital Signs/I&O Vital Signs Date Time Temp Pulse Resp B/P (MAP) Pulse Ox O2 Delivery O2 Flow Rate FiO2 08/09/19 12:00 1.0 08/09/19 12:00 98.1 83 18 102/80 (87) 93 Nasal Cannula I&O- Last 24 Hours up to 6 AM 08/09/19 06:00 Intake Total 3640 ml Output Total 3400 ml Balance 240 ml Laboratory Data 24H LABS Laboratory Tests 2 08/09/19 03:59: Bedside Glucose (Misc Panel) 88 08/09/19 05:21: Immature Granulocyte % (Auto) 0.8, Neutrophils (%) (Auto) 78.4H, Lymphocytes (%) (Auto) 14.4L, Monocytes (%) (Auto) 4.9, Eosinophils (%) (Auto) 1.2, Basophils (%) (Auto) 0.3, Neutrophils # (Auto) 11.5H, Lymphocytes # (Auto) 2.1, Monocytes # (Auto) 0.7, Eosinophils # (Auto) 0.2, Basophils # (Auto) 0.0, Nucleated Red Blood Cells % (auto) 0.0, Anion Gap 6L, Glomerular Filtration Rate > 60.0, Calcium Level 8.5 CBC/BMP Laboratory Tests 08/09/19 05:21 Microbiology Microbiology 08/07/19 Blood Culture - Preliminary, Resulted No growth after 24 hours . All specim... 08/07/19 Blood Culture - Preliminary, Resulted No Growth after 48 hours. All Specime... 08/07/19 Respiratory Virus Panel (PCR) ([facility]) - Final, Complete LONNIE SHINE MD Aug 09, 2019 14:11
[2019-08-09 16:00] VITALS: BP 104/84
[2019-08-09 20:00] VITALS: BP 135/65
[2019-08-09] MEDS: PRAZOSIN 1 MG CAP PO SCH (21:19)
[2019-08-09] MEDS: cloZAPine 100 MG TAB (S0136) PO SCH (21:20)
[2019-08-09] MEDS: MONTELUKAST 10 MG TAB PO SCH (21:20)
[2019-08-09] MEDS: NORTRIPTYLINE 25 MG CAP PO SCH (21:21)
[2019-08-09] MEDS: SIMVASTATIN 10 MG TAB PO SCH (21:21)
[2019-08-09] MEDS: ENOXAPARIN 40 MG/0.4 ML SYRINGE (J1650) SC SCH (21:21)
[2019-08-10] VITALS (7 sets, daily range): BP systolic 98–119; BP diastolic 55–74
[2019-08-10] MEDS: SLF 3 ML SYR IV SCH ×3 (04:32→20:33)
[2019-08-10] MEDS: LEVOTHYROXINE 88MCG TABLET (0.088 MG) PO SCH (04:33)
[2019-08-10] MEDS: SUMAtriptan SUCCINATE 6 MG/0.5 ML VIAL SC PRN (04:33)
[2019-08-10 06:25] LABS: BASO # 0.1 10^3/uL (0.0-0.2); BASO % 0.5 % (0.0-1.0); EOS # 0.3 10^3/uL (0.0-0.5); EOS % 2.6 % (0.0-3.0); HEMATOCRIT 29.6 % (36.0-47.0); HEMOGLOBIN 9.4 g/dl (12.0-15.5); LYMPH # 2.2 10^3/uL (1.5-5.0); LYMPH % 22.1 % (24.0-44.0); MEAN CORPUSCULAR HEMOGLOBIN 27.4 pg (27.0-33.0); MEAN CORPUSCULAR HGB CONC 31.8 g/dl (32.0-36.5); MEAN CORPUSCULAR VOLUME 86.3 fl (80.0-96.0); MONO # 0.7 10^3/uL (0.0-0.8); MONO % 6.6 % (0.0-5.0); NEUTROPHILS # 6.7 10^3/uL (1.5-8.5); NEUTROPHILS % 67.6 % (36.0-66.0); PLATELET COUNT, AUTOMATED 263 10^3/uL (150-450); RED BLOOD COUNT 3.43 10^6/uL (4.00-5.40); WHITE BLOOD COUNT 9.9 10^3/uL (4.0-10.0)
[2019-08-10 06:43] LABS: BLOOD UREA NITROGEN 10 MG/DL (7-18); CALCIUM LEVEL 8.8 MG/DL (8.5-10.1); CARBON DIOXIDE LEVEL 26 MEQ/L (21-32); CHLORIDE LEVEL 110 MEQ/L (98-107); CREATININE FOR GFR 0.74 MG/DL (0.55-1.30); GLOMERULAR FILTRATION RATE > 60.0 (>51); GLUCOSE, FASTING 82 MG/DL (70-100); SODIUM LEVEL 145 MEQ/L (136-145)
[2019-08-10] MEDS: IPRATROPIUM 0.5MG/ALBUTEROL 2.5MG INH SOL UD 3ML (DUONEB)(J7620) INH SCH ×4 (08:00→20:56)
[2019-08-10] MEDS: GABAPENTIN 300 MG CAP PO SCH ×3 (08:50→20:30)
[2019-08-10] MEDS: FAMOTIDINE 20 MG TAB PO SCH ×2 (08:50→17:52)
[2019-08-10] MEDS: MULTIVITAMINS/MINERALS THERAP 1 TAB PO SCH (08:51)
[2019-08-10] MEDS: ACETAMINOPHEN TAB 650MG DOSE (2X325MG) PO PRN ×2 (08:51→20:32)
[2019-08-10] MEDS: lamoTRIgine 100MG TAB PO SCH ×2 (08:51→20:31)
[2019-08-10] MEDS: cloZAPine 25 MG TAB (S0136) PO SCH (08:51)
[2019-08-10] MEDS: cefTRIAXone SOD 1 GM in D5W MINI-BAG PLUS 50 ML IV SCH (12:44)
[2019-08-10] MEDS: CALCIUM/VITAMIN D 500 MG TAB PO SCH ×2 (12:44→17:52)
[2019-08-10] MEDS: AZITHROMYCIN INJ 500 MG, VIAL MATE ADAPTER 1 EACH in D5W 250 ML IV SCH (14:26)
--- NOTE | 2019-08-10 14:27 | IPNPDOC ---
Date Seen The patient was seen on 08/10/19. Progress Note SUBJECTIVE: Patient was seen at bedside today. She expressed that she was feeling better than on admission. However, she still does not feel back to her baseline and wouldn't feel comfortable going home today. She reports improvement in her shortness of breath. However, she now reports a sore throat, cough, odynophagia, as well as right ear pain. She is still able to eat breakfast. When asked about her headaches and use of sumatriptan at home, she says that she only has a headache about once a week and uses her sumatriptan the same amount.. She denies any dizziness, altered mental status, chest pain, abdominal pain, nausea, vomiting, difficulty urinating or moving her bowels. OBJECTIVE PHYSICAL EXAMINATION: VITAL SIGNS: Please see below. GENERAL: Pt lying comfortably in bed. Pleasant and cooperative. In no acute distress. HEENT: Normocephalic, atraumatic. No pain upon palpation of the pinna. Tympanic membrane was difficult to visualize due to excess cerumen. No scleral icterus. No conjunctival pallor. PERRLA. EOMI. no nasal discharge. Mild pharyngeal erythema, no exudates noted. No tracheal deviation. No obvious swollen lymph nodes CARDIOVASCULAR: Regular rate and rhythm. Normal S1 and S2. No elevated JVD. No clubbing of digits. No murmurs, gallops or rubs noted RESPIRATORY: Symmetric chest wall movement. Lungs clear to auscultation ABDOMINAL:. No obvious lesions noted. Normal bowel sounds in all 4 quadrants. No pain, tenderness, guarding or rigidity EXTREMITIES:. 2/4 pulses noted throughout. No edema noted in lower extremities. No calf pain upon palpation NEUROLOGICAL: A&O x3. CNII-XII intact. Spontaneous movements of all extremities. No focal deficits noted PSYCHOLOGICAL: Mood and affect were appropriate LABORATORY DATA, MICROBIOLOGY: Please see below. Imagin08/07/[address]: No acute intracranial process. 08/07/2019. Chest x-ray: Large infiltrate in the right base consistent with pneumonia. 08/07/2019 CTA: No CT evidence of pulmonary embolus. Diffuse severe alveolar edema pattern in the lung parenchyma increased from the radiographs done earlier more confluent consolidation in the right lower lobe and right middle lobe. Question superimposed pneumonia ASSESSMENT AND PLAN: This is a 53-year-old white female with past medical history of cervical cancer, bipolar disorder, borderline personality disorder, OCD, anxiety and migraines presenting with shortness of breath and hypotension found to have right lower lobe pneumonia. PROBLEMS: #Community acquired pneumonia -Leukocytosis down to 9.9 from 14.6 -Appears clinically improved from admission not at baseline -Ordered PT consult -Influenza negative -on Day 4/5 of azithromycin/ceftriaxone -Blood cultures negative #Hypotension -resolved -continue to monitor #Hypothyroidism -Continue home meds #Bipolar -Continue home meds -Continue monitoring CBC w/ Diff for agranulocytosis 2/ to Clozapine #Anxiety -Continue home meds #Migraines -D/C sumatriptan DISPOSITION: Pending clinical improvement. VS, I&O, 24H, Fishbone Vital Signs/I&O Vital Signs Date Time Temp Pulse Resp B/P (MAP) Pulse Ox O2 Delivery O2 Flow Rate FiO2 08/10/19 12:00 98.3 78 18 99/62 (74) 93 Nasal Cannula 1.0 I&O- Last 24 Hours up to 6 AM 08/10/19 06:00 Intake Total 1200 ml Output Total 2750 ml Balance -1550 ml Laboratory Data 24H LABS Laboratory Tests 2 08/10/19 05:28: Immature Granulocyte % (Auto) 0.6, Neutrophils (%) (Auto) 67.6H, Lymphocytes (%) (Auto) 22.1L, Monocytes (%) (Auto) 6.6H, Eosinophils (%) (Auto) 2.6, Basophils (%) (Auto) 0.5, Neutrophils # (Auto) 6.7, Lymphocytes # (Auto) 2.2, Monocytes # (Auto) 0.7, Eosinophils # (Auto) 0.3, Basophils # (Auto) 0.1, Nucleated Red Blood Cells % (auto) 0.0, Anion Gap 9, Glomerular Filtration Rate > 60.0, Calcium Level 8.8 CBC/BMP Laboratory Tests 08/10/19 05:28 Microbiology Microbiology 08/07/19 Blood Culture - Preliminary, Resulted No Growth after 48 hours. All Specime... 08/07/19 Blood Culture - Preliminary, Resulted No Growth after 72 hours. All specime... 08/07/19 Respiratory Virus Panel (PCR) ([facility]) - Final, Complete GME ATTESTATION GME ATTESTATION My faculty preceptor for this patient encounter was physically present during the encounter and was fully available. All aspects of the patient interview, examination, medical decision making process, and medical care plan development were reviewed and approved by the faculty preceptor. The faculty preceptor is aware and concurs with the plan as stated in the body of this note and will attest to such by his/her cosignature. ATTENDING NOTE Patient was seen and examined by me this morning with the residents. Agree with the above assessment and plan KISHA PAIGE-3 Aug 10, 2019 14:27 KEVIN ARRINGTON MD Aug 10, 2019 17:22
[2019-08-10] MEDS: oxyCODONE 5MG TAB PO PRN (15:54)
[2019-08-10] MEDS: cloZAPine 100 MG TAB (S0136) PO SCH (20:25)
[2019-08-10] MEDS: PRAZOSIN 1 MG CAP PO SCH (20:30)
[2019-08-10] MEDS: MONTELUKAST 10 MG TAB PO SCH (20:31)
[2019-08-10] MEDS: NORTRIPTYLINE 25 MG CAP PO SCH (20:31)
[2019-08-10] MEDS: SIMVASTATIN 10 MG TAB PO SCH (20:31)
[2019-08-10] MEDS: ALPRAZolam 0.5 MG TAB PO PRN (20:31)
[2019-08-10] MEDS: ENOXAPARIN 40 MG/0.4 ML SYRINGE (J1650) SC SCH (20:32)
[2019-08-11] VITALS: BP 105/67
[2019-08-11] MEDS: oxyCODONE 5MG TAB PO PRN (03:57)
[2019-08-11 04:00] VITALS: BP 110/69
[2019-08-11] MEDS: LEVOTHYROXINE 88MCG TABLET (0.088 MG) PO SCH (05:19)
[2019-08-11] MEDS: SLF 3 ML SYR IV SCH (05:21)
[2019-08-11 05:49] LABS: BASO # 0.1 10^3/uL (0.0-0.2); BASO % 0.8 % (0.0-1.0); EOS # 0.3 10^3/uL (0.0-0.5); EOS % 3.3 % (0.0-3.0); HEMATOCRIT 30.1 % (36.0-47.0); HEMOGLOBIN 9.5 g/dl (12.0-15.5); LYMPH % 22.2 % (24.0-44.0); MEAN CORPUSCULAR HEMOGLOBIN 27.3 pg (27.0-33.0); MEAN CORPUSCULAR HGB CONC 31.6 g/dl (32.0-36.5); MEAN CORPUSCULAR VOLUME 86.5 fl (80.0-96.0); MONO # 0.8 10^3/uL (0.0-0.8); MONO % 8.3 % (0.0-5.0); NEUTROPHILS % 64.6 % (36.0-66.0); PLATELET COUNT, AUTOMATED 256 10^3/uL (150-450); RED BLOOD COUNT 3.48 10^6/uL (4.00-5.40); WHITE BLOOD COUNT 9.2 10^3/uL (4.0-10.0)
[2019-08-11 06:21] LABS: BLOOD UREA NITROGEN 10 MG/DL (7-18); CARBON DIOXIDE LEVEL 27 MEQ/L (21-32); CHLORIDE LEVEL 106 MEQ/L (98-107); GLOMERULAR FILTRATION RATE > 60.0 (>51); GLUCOSE, FASTING 89 MG/DL (70-100); POTASSIUM SERUM 4.4 MEQ/L (3.5-5.1); SODIUM LEVEL 140 MEQ/L (136-145)
[2019-08-11] MEDS: IPRATROPIUM 0.5MG/ALBUTEROL 2.5MG INH SOL UD 3ML (DUONEB)(J7620) INH SCH ×2 (08:00→12:10)
[2019-08-11 08:45] VITALS: BP 107/56
[2019-08-11] MEDS: cloZAPine 25 MG TAB (S0136) PO SCH (09:03)
[2019-08-11] MEDS: MULTIVITAMINS/MINERALS THERAP 1 TAB PO SCH (09:03)
[2019-08-11] MEDS: GABAPENTIN 300 MG CAP PO SCH (09:03)
[2019-08-11] MEDS: FAMOTIDINE 20 MG TAB PO SCH (09:03)
[2019-08-11] MEDS: lamoTRIgine 100MG TAB PO SCH (09:04)
[2019-08-11] MEDS ORDERED: CETIRIZINE (ZyrTEC) 10 MG TAB PO SCH (11:00)
[2019-08-11] MEDS ORDERED: CETI10TA PO (11:10)
[2019-08-11] MEDS: CALCIUM/VITAMIN D 500 MG TAB PO SCH (11:57)
[2019-08-11] MEDS: cefTRIAXone SOD 1 GM in D5W MINI-BAG PLUS 50 ML IV SCH (13:00)
--- NOTE | 2019-08-11 14:59 | DS.PDOC ---
Discharge Summary General Date of Admission Aug 07, 2019 at 14:27 Date of Discharge Aug 11, 2019 Attending Physician: KEVIN ARRINGTON MD Discharge Summary PROCEDURES PERFORMED DURING STAY: [None]. ADMITTING DIAGNOSES: 1. Lactic Acidosis 2/2 Pneumonia 2. Hypotension 3. Hypothyroidism 4.Bipolar Disorder 5.Anxiety 6.Migraines DISCHARGE DIAGNOSES: 1. R. Lower Lobe Pneumonia - Resolved 2. Hypotension- Resolved 3.Hypothyroidism 4.Bipolar Disorder 5.Anxiety 6.Migraines COMPLICATIONS/CHIEF COMPLAINT: Hypotension. HISTORY OF PRESENT ILLNESS: Maria Isabel Ashley is a 53-year-old white female with a pertinent past medical history of cervical cancer, bipolar, borderline OCD, anxiety and migraines presenting with a chief complaint of shortness of breath. She describes that she's had a headache for the past week that has been different than her normal migraines. She describes the pain being behind her eyes and in her neck. Yesterday evening while watching TV. She claims she had a period of altered mental status where she was unable to recognize the TV remote and unable to recognize her friend. At 4 AM she claims she developed a nonproductive cough and experienced chills. She subsequently called her primary care physician who recommended she go to the ER. She has not had any recent sick contacts. She has not had the flu vaccine. She claims her only change in medication was a increase in her dose of clozapine one-month ago. She has a significant history of illicit drug use. She claims she quit 14 years ago. On admission to the ER she was found to have blood pressure of 82/50, which resolved to 108/62, with 2 L of normal saline. HOSPITAL COURSE: Patient arrived to the ER with shortness of breath. ProBNP, ECG and cardiac enzymes were negative. CT head was negative for acute process. Patient was started on oxygen therapy. Chest x-ray showed evidence of right upper lobe pneumonia. Blood cultures and respiratory panel sent. Patient was started on methylprednisolone and DuoNeb's CBC showed elevated white count of 16.1. Lactic acid was elevated at 2.7. Patient was given IV fluids and started on ceftriaxone/azithromycin. CT angios was negative for pulmonary embolism. P atient was restarted on home meds (simvastatin prazosin, nortriptyline, montelukast, levothyroxine, lamotrigine, clozapine, alprazolam). Patient was started on regular diet. Blood cultures, influenza panel and respiratory panel were negative. Patient was ordered an Acapella. Patient remained afebrile and clinically improved in the coming days. PT evaluation was ordered, patient was cleared. White count resolved to 9.2. Cetirizine was ordered for patient's sore throat and ear pain. DISCHARGE MEDICATIONS: Please see below. ALLERGIES: Please see below. PHYSICAL EXAMINATION ON DISCHARGE: VITAL SIGNS: Please see below. GENERAL: Pt lying comfortably in bed. Pleasant and cooperative. In no acute distress. HEENT: Normocephalic, atraumatic. No scleral icterus. No conjunctival pallor. PERRLA. EOMI. no nasal discharge. No tracheal deviation. No obvious swollen lymph nodes CARDIOVASCULAR: Regular rate and rhythm. Normal S1 and S2. No elevated JVD. No clubbing of digits. No murmurs, gallops or rubs noted RESPIRATORY: Symmetric chest wall movement. Lungs clear to auscultation ABDOMINAL: No obvious lesions noted. Normal bowel sounds in all 4 quadrants. No pain, tenderness, guarding or rigidity EXTREMITIES: 2/4 pulses noted throughout. No edema noted in lower extremities. No calf pain upon palpation NEUROLOGICAL: A&O x3. CNII-XII intact. Spontaneous movements of all extremities. No focal deficits noted PSYCHOLOGICAL: Mood and affect were appropriate LABORATORY DATA: Please see below. IMAGIN08/07/[address]: No acute intracranial process. 08/07/2019. Chest x-ray: Large infiltrate in the right base consistent with pneumonia. 08/07/2019 CTA: No CT evidence of pulmonary embolus. Diffuse severe alveolar edema pattern in the lung parenchyma increased from the radiographs done earlier more confluent consolidation in the right lower lobe and right middle lobe. Question superimposed pneumonia PROGNOSIS: Good ACTIVITY: [As tolerated]. DIET: Regular diet DISCHARGE PLAN: -Continue medications as prescribed -F/u with PCP within 7-10 days DISPOSITION: 01 Home, Self-Care. DISCHARGE CONDITION: [Stable]. TIME SPENT ON DISCHARGE: Greater than 30 minutes. Vital Signs/I&Os Vital Signs Date Time Temp Pulse Resp B/P (MAP) Pulse Ox O2 Delivery O2 Flow Rate FiO2 08/11/19 08:45 98.1 94 20 107/56 (73) 93 Room Air 08/10/19 16:00 I&O- Last 24 Hours up to 6 AM 08/11/19 06:00 Intake Total 1583 ml Output Total 2450 ml Balance -867 ml Laboratory Data Labs 24H Laboratory Tests 2 08/11/19 05:26: Immature Granulocyte % (Auto) 0.8, Neutrophils (%) (Auto) 64.6, Lymphocytes (%) (Auto) 22.2L, Monocytes (%) (Auto) 8.3H, Eosinophils (%) (Auto) 3.3H, Basophils (%) (Auto) 0.8, Neutrophils # (Auto) 6.0, Lymphocytes # (Auto) 2.0, Monocytes # (Auto) 0.8, Eosinophils # (Auto) 0.3, Basophils # (Auto) 0.1, Nucleated Red Blood Cells % (auto) 0.0, Anion Gap 7L, Glomerular Filtration Rate > 60.0, Calcium Level 9.0 CBC/BMP Laboratory Tests 08/11/19 05:26 Microbiology Microbiology 08/07/19 Blood Culture - Preliminary, Resulted No Growth after 72 hours. All specime... 08/07/19 Blood Culture - Preliminary, Resulted No Growth after 72 hours. All specime... 08/07/19 Respiratory Virus Panel (PCR) ([facility]) - Final, Complete Discharge Medications Scheduled Botulinum Toxin Type A (Botox) 100 Unit Vial, 1 DOSE IM ASDIRECTED, (Reported) Calcium Carbonate/Vitamin D3 (Calcium 600-Vit D3 400 Tablet) 1 Each Tablet, 1 TAB PO BID, (Reported) LUNCH AND DINNER Cetirizine HCl (Cetirizine HCl) 10 Mg Tablet, 10 MG PO DAILY Clozapine (Clozapine) 50 Mg Tablet, 50 MG PO QAM, (Reported) Clozapine (Clozapine) 100 Mg Tablet, 300 MG PO QHS, (Reported) Cranberry Fruit Extract (Cranberry) 500 Mg Tablet, 500 MG PO DAILY, (Reported) LUNCH Cyanocobalamin (Vitamin B-12) (Vitamin B-12) 500 Mcg Tab.subl, 500 MCG SL TID, (Reported) Erenumab-Aooe (Aimovig Autoinjector) 70 Mg/1 Ml Auto.injct, 70 MG IM QMONTH, (Reported) Famotidine (Famotidine) 20 Mg Tab, 20 MG PO BIDWM, (Reported) Folic Acid (Folic Acid) 0.8 Mg Tablet, 800 MCG PO DAILY, (Reported) LUNCH Gabapentin (Gabapentin) 600 Mg Tab, 600 MG PO TID, (Reported) Lamotrigine (Lamotrigine) 100 Mg Tablet, 100 MG PO BID, (Reported) Levothyroxine Sodium (Levothyroxine Sodium) 88 Mcg Tab, 88 MCG PO DAILY, (Reported) Montelukast Sodium (Montelukast Sodium) 10 Mg Tab, 10 MG PO QHS, (Reported) Multivit-Min/FA/Lycopen/Lutein (Centrum Silver Tablet) 1 Each Tablet, 2 TAB PO DAILY, (Reported) Multivitamin with Minerals (Hair, Skin and Nails) 1 Each Tablet, 3 TAB PO QPM, (Reported) Nortriptyline HCl (Nortriptyline HCl) 50 Mg Capsule, 50 MG PO QHS, (Reported) Prazosin Hcl (Prazosin HCl) 2 Mg Cap, 4 MG PO QHS, (Reported) Simvastatin (Simvastatin) 10 Mg Tab, 10 MG PO QHS, (Reported) Scheduled PRN Acetaminophen (Tylenol Extra Strength) 500 Mg Tablet, 1,500 MG PO BID PRN for PAIN, (Reported) Albuterol Sulfate (Ventolin Hfa) 108 Mcg/Act Aer, 2 PUFFS INH QID PRN for SOB/WHEEZING, (Reported) Alprazolam (Xanax) 0.5 Mg Tablet, 0.5 MG PO QID PRN for ANXIETY, (Reported) Fluticasone Propionate (Flonase Allergy Relief) 50 Mcg/Act Spr, 2 SPRAY NA DAILY PRN for NASAL CONGESTION, (Reported) Lorazepam (Lorazepam) 0.5 Mg Tablet, 0.5 MG PO DAILY PRN for ANXIETY, (Reported) Oxycodone HCl/Acetaminophen (Oxycodone-Acetaminophen 10-325) 1 Tab Tab, 1 TAB PO BID PRN for PAIN, (Reported) Sumatriptan Succinate (Sumatriptan Succinate) 4 Mg/0.5 Ml Inj, 4 MG SC DAILY PRN for MIGRAINE, (Reported) Allergies Coded Allergies: fluoxetine (Verified Adverse Reaction, Intermediate, loss of vision, 12/23/18) hydroxyzine (Verified Adverse Reaction, Mild, hyper, 12/23/18) GME ATTESTATION GME ATTESTATION My faculty preceptor for this patient encounter was physically present during the encounter and was fully available. All aspects of the patient interview, examination, medical decision making process, and medical care plan development were reviewed and approved by the faculty preceptor. The faculty preceptor is aware and concurs with the plan as stated in the body of this note and will attest to such by his/her cosignature. ATTENDING NOTE Patient was seen and examined by me this morning with the residents. Agree with the above assessment and plan KISHA PAIGE-Mc Aug 11, 2019 14:59 KEVIN ARRINGTON MD Aug 12, 2019 14:21
== END 2019-08-11 13:15 | disposition home or self-care (01) | DRG 194 ==
LOC: M ED 11:00 → M ED INP 14:27 → M PCU 21:39
PROVIDERS: ADMIT Student in an Organized Health Care Education/Training Program; ATTEND Internal Medicine
DX: J18.1 Lobar pneumonia, unspecified organism (principal); E87.2 Acidosis; F31.9 Bipolar disorder, unspecified; E03.9 Hypothyroidism, unspecified; I95.9 Hypotension, unspecified; F41.9 Anxiety disorder, unspecified; G43.909 Migraine, unspecified, not intractable, without status migrainosus; Z85.41 Personal history of malignant neoplasm of cervix uteri; Z87.891 Personal history of nicotine dependence; Z79.899 Other long term (current) drug therapy; Z88.8 Allergy status to other drugs, medicaments and biological substances

== ENCOUNTER → 2019-08-12 | Outpatient (CLI) | payer MEDICARE, MEDICAID ==
[~2019-08-12] MED LIST changes: +ACET-897 PO; +AIMO70IN IM; +BOTO10VL IM; +CALC1TAB74 PO; +CENT1TAB PO; +CETI10TA PO; +CLOZ100T2 PO; +CLOZ50TA PO; +FOLI0.8T2 PO; +HM C500T3 PO; -LAMO100T PO; +LAMO100T3 PO; +LORA0.5T11 PO; +NORT50CA PO; -SIMV10TA2 PO; +SIMV10TA21 PO; +SM HTAB3 PO; +VITA500S3 SL; +XANA0.5T PO
--- NOTE | 2019-08-12 18:01 | REP ---
Two-view chest: 08/12/2019. Indication: Pneumonia. Comparison: CT exam from 5 days earlier. Findings: Right lower lobe air space consolidation is redemonstrated. There is no pleural effusion or pneumothorax. The left lung is clear. The cardiomediastinal silhouette is unremarkable. Impression: Evolving right lower lobe pneumonia. Electronically Signed by Willie Landaverde DO 08/12/2019 05:51 P
== END ==
LOC: M RAD 16:22 → M LAB 16:22
PROVIDERS: ATTEND Physician Assistant
DX: J18.0 Bronchopneumonia, unspecified organism (principal)

== ENCOUNTER → 2019-08-27 | Outpatient (CLI) | payer MEDICARE, MEDICAID ==
--- NOTE | 2019-08-27 10:51 | REP ---
Two-view chest: 08/27/2019. Indication: Pneumonia. Comparison: 08/12/2019. Findings: The right lower lobe opacity is no longer evident. There is no pleural effusion or pneumothorax. The cardiomediastinal silhouette is unremarkable. Impression: Resolution of the right lower lobe pneumonia Electronically Signed by Willie Landaverde DO 08/27/2019 10:43 A
== END ==
LOC: M RAD 10:22
PROVIDERS: ATTEND Physician Assistant
DX: Z09 Encounter for follow-up examination after completed treatment for conditions other than malignant neoplasm (principal); Z87.09 Personal history of other diseases of the respiratory system

== ENCOUNTER → 2019-10-31 | Outpatient (CLI) | payer MEDICARE, MEDICAID ==
[~2019-10-31] MED LIST changes: -LORA0.5T11 PO; +LORA0.5T5 PO; -LORA1TAB12 PO; +LORA1TAB4 PO
[2019-10-31 18:23] LABS: BASO # 0.1 10^3/uL (0.0-0.2); BASO % 0.3 % (0.0-1.0); EOS # 0.1 10^3/uL (0.0-0.5); EOS % 0.3 % (0.0-3.0); HEMATOCRIT 35.1 % (36.0-47.0); HEMOGLOBIN 10.4 g/dl (12.0-15.5); LYMPH # 2.1 10^3/uL (1.5-5.0); LYMPH % 12.3 % (24.0-44.0); MEAN CORPUSCULAR HGB CONC 29.6 g/dl (32.0-36.5); MEAN CORPUSCULAR VOLUME 84.4 fl (80.0-96.0); MONO # 0.9 10^3/uL (0.0-0.8); MONO % 5.3 % (0.0-5.0); NEUTROPHILS # 14.1 10^3/uL (1.5-8.5); NEUTROPHILS % 81.4 % (36.0-66.0); PLATELET COUNT, AUTOMATED 275 10^3/uL (150-450); RED BLOOD COUNT 4.16 10^6/uL (4.00-5.40); WHITE BLOOD COUNT 17.3 10^3/uL (4.0-10.0)
[2019-10-31 18:33] LABS: ALBUMIN 3.4 GM/DL (3.2-5.2); ALT/SGPT 24 U/L (12-78); BILIRUBIN,TOTAL 0.2 MG/DL (0.2-1.0); BLOOD UREA NITROGEN 14 MG/DL (7-18); CALCIUM LEVEL 8.5 MG/DL (8.5-10.1); CARBON DIOXIDE LEVEL 27 MEQ/L (21-32); CHLORIDE LEVEL 107 MEQ/L (98-107); CREATININE FOR GFR 0.72 MG/DL (0.55-1.30); FREE T4 0.96 NG/DL (0.76-1.46); GLOMERULAR FILTRATION RATE > 60.0 (>51); GLUCOSE, FASTING 90 MG/DL (70-100); POTASSIUM SERUM 4.2 MEQ/L (3.5-5.1); SODIUM LEVEL 140 MEQ/L (136-145); THYROID STIMULATING HORMONE 0.617 uIU/ML (0.358-3.740); TOTAL PROTEIN 6.7 GM/DL (6.4-8.2)
== END ==
LOC: M WUC 14:18
PROVIDERS: ATTEND Physician Assistant
DX: F41.9 Anxiety disorder, unspecified (principal)

== ENCOUNTER → 2020-02-19 | Outpatient (REF) | payer MEDICARE, MEDICAID ==
[~2020-02-19] MED LIST changes: -MONT10TA2 PO; +MONT10TA4 PO
== END ==
LOC: M SFHCCLAY 08:54
PROVIDERS: ATTEND Family Medicine
DX: R30.0 Dysuria (principal)
CPT/HCPCS: 87088; 87186; G0463

== ENCOUNTER → 2021-01-17 | Outpatient (CLI) | payer MEDICARE, MEDICAID ==
[~2021-01-17] MED LIST changes: +ASPI-546 PO; -ASPI1TAB15 PO; -FOLI400T PO; +FOLI400T13 PO; +MONT10TA10 PO; -MONT10TA4 PO; -OMEG1CAP4; +OMEG1CAP85
--- NOTE | 2021-01-17 15:38 | REP ---
INDICATION: Z12.31 SCREENING MAMMO. COMPARISON: Multiple the latest 11/07/2018 with diagnostic mammo obtained 11/14/2018 TECHNIQUE: Digital screening mammography was carried out bilaterally in the CC and MLO projections using both 2D and 3D modalities and compared to the prior exams. By history, the patient has no complaints of a palpable breast abnormality or other significant breast complaints.. FINDINGS: The breasts are unchanged in size and shape. Once again, dense heterogenous somewhat nodular fibroglandular elements are seen bilaterally to such a degree that the sensitivity of the mammogram detecting cancers decreased. In the retroglandular adipose and in the retro areolar central portion of the right breast seen only on the MLO view there is a potential round nodular density. No other suspicious features are seen in either breast. Benign calcifications are again seen bilaterally. There is no skin thickening or nipple retraction. The Volpara volumetric breast density pattern is C. IMPRESSION: Altaf density seen in the right breast as described above for which diagnostic digital magnified spot compression views are recommended in the MLO projection with possible additional mammography obtained. Diagnostic ultrasonography if indicated. BIRADS/ACR category 0. This patient's Tyrer-Cuzick lifetime breast cancer risk assessment score is 6.3%. This mammogram was interpreted with the aid of an FDA-approved computer-aided detection system. The patient states she had a clinical breast exam in over a year. The patient letter being requested is M0. RECOMMENDATION: As above <Electronically signed by Carlo Rivera > 01/17/21 [id number]
== END ==
LOC: M WHC 13:43
PROVIDERS: ATTEND Physician Assistant
DX: Z12.31 Encounter for screening mammogram for malignant neoplasm of breast (principal); R92.8 Other abnormal and inconclusive findings on diagnostic imaging of breast

== ENCOUNTER → 2021-02-08 | Outpatient (CLI) | payer MEDICARE, MEDICAID ==
[~2021-02-08] MED LIST changes: -HM C500T3 PO; +HM C500T4 PO
--- NOTE | 2021-02-08 15:00 | REP ---
INDICATION: ABNORMALITY RT BREAST ON SCREEN MAMMO; ABNORMALITLY RT BREAST ON SCREEN MAMMO. COMPARISON: Comparison mammography November 05, 2018 and January 17, 2021. TECHNIQUE: Laterally exaggerated CC, true mediolateral, and magnified focal spot-compression mammographic images of the right breast are made in the area in question. 3D tomography is utilized. A targeted right breast sonography is performed. This mammogram was interpreted with the aid of an FDA-approved computer-aided detection system. FINDINGS: Breast parenchyma is again noted to be heterogeneously dense in a pattern which may inhibit the sensitivity of mammography. Diagnostic mammography images confirm the presence of a 2.3 cm well-circumscribed density in the upper-outer quadrant of the right breast corresponding to screening mammographic findings from January 17, 2021. No other suspicious mammographic abnormality. The Volpara volumetric breast density pattern is seen. Targeted ultrasound: Targeted right breast sonography in the upper outer quadrant is performed. At 9 o'clock, 2.7 cm from the nipple, there is a 2.1 x 0.9 x 2.1 cm simple cyst. This is felt to account for the mammographic opacity. IMPRESSION: BIRADS/ACR category 2 benign right breast mammographic and sonographic findings. Simple cyst confirmed by ultrasound accounting for the mammographic opacity. This patient's Tyrer-Cuzick lifetime breast cancer risk assessment score is 6.3%. RECOMMENDATION: Repeat screening mammography recommended 1 year (for women over 40). The patient letter being requested is M1 dense. <Electronically signed by Tanner Chew > 02/08/21 [id number]
== END ==
LOC: M WHC 12:43
PROVIDERS: ATTEND Physician Assistant
DX: N60.01 Solitary cyst of right breast (principal)
CPT/HCPCS: 76642; 77065; G0279

== ENCOUNTER → 2021-05-03 | Outpatient (CLI) | payer MEDICARE, MEDICAID | LOC: M LABSMTC 11:57 | PROVIDERS: ATTEND Student in an Organized Health Care Education/Training Program | DX: Z01.812 Encounter for preprocedural laboratory examination (principal); Z20.822 Contact with and (suspected) exposure to COVID-19 ==

== ENCOUNTER 2021-08-18 09:18 | Inpatient (IN) | payer MEDICARE, MEDICAID ==
[~2021-08-18] VITALS: Ht 157.5 cm; Wt 59.5 kg
[~2021-08-18 09:18] MED LIST changes: -MONT10TA10 PO; +MONT10TA97 PO; -SUMA20SP; +SUMA20SP4; +SUMA4CAR SC; -SUMA4INJ4 SC
[2021-08-18 11:05] LABS: BASO % 0.4 % (0.0-1.0); EOS # 0.1 10^3/uL (0.0-0.5); EOS % 0.7 % (0.0-3.0); HEMATOCRIT 34.6 % (36.0-47.0); HEMOGLOBIN 10.9 g/dl (12.0-15.5); LYMPH # 1.2 10^3/uL (1.5-5.0); LYMPH % 12.9 % (24.0-44.0); MEAN CORPUSCULAR HEMOGLOBIN 29.7 pg (27.0-33.0); MEAN CORPUSCULAR HGB CONC 31.5 g/dl (32.0-36.5); MEAN CORPUSCULAR VOLUME 94.3 fl (80.0-96.0); MONO # 0.6 10^3/uL (0.0-0.8); MONO % 7.1 % (2.0-8.0); NEUTROPHILS % 78.8 % (36.0-66.0); PLATELET COUNT, AUTOMATED 196 10^3/uL (150-450); RED BLOOD COUNT 3.67 10^6/uL (4.00-5.40); WHITE BLOOD COUNT 8.9 10^3/uL (4.0-10.0)
[2021-08-18 11:15] LABS: INR 0.88; PROTHROMBIN TIME 12.4 SECONDS (12.7-14.5)
[2021-08-18 11:16] LABS: PARTIAL THROMBOPLASTIN TIME 26.9 SECONDS (25.9-37.0)
[2021-08-18] MEDS ORDERED: DIVA500T94 PO (11:42)
[2021-08-18] MEDS ORDERED: ROPI0.253 PO (11:42)
[2021-08-18] MEDS ORDERED: OLAN10TA12 PO (11:42)
[2021-08-18] MEDS ORDERED: AMAN100T PO (11:42)
[2021-08-18] MEDS ORDERED: OLAN1TAB16 (11:42)
[2021-08-18 11:47] LABS: CK-MB VALUE MASS 5.8 NG/ML (<3.6); MB/CK RELATIVE INDEX 5.47 (< OR =4)
[2021-08-18 11:48] LABS: ALBUMIN 3.4 GM/DL (3.2-5.2); ALT/SGPT 31 U/L (12-78); BILIRUBIN,DIRECT < 0.1 MG/DL (0.0-0.2); BILIRUBIN,TOTAL 0.2 MG/DL (0.2-1.0); BLOOD UREA NITROGEN 12 MG/DL (7-18); CALCIUM LEVEL 8.4 MG/DL (8.5-10.1); CARBON DIOXIDE LEVEL 26 MEQ/L (21-32); CHLORIDE LEVEL 111 MEQ/L (98-107); CHOLESTEROL LEVEL 152 MG/DL (<200); CHOLESTEROL RISK RATIO 2.338 (<5); CREATININE FOR GFR 0.69 MG/DL (0.55-1.30); GLOMERULAR FILTRATION RATE > 60.0 (>51); GLUCOSE, FASTING 81 MG/DL (70-100); HDL CHOLESTEROL 65 MG/DL (>40); LDL CHOLESTEROL 65 MG/DL (<100); NON-HDL-C 87 MG/DL; POTASSIUM SERUM 4.1 MEQ/L (3.5-5.1); SODIUM LEVEL 143 MEQ/L (136-145); TOTAL PROTEIN 6.3 GM/DL (6.4-8.2); TRIGLYCERIDES LEVEL 112 MG/DL (<150)
[2021-08-18] MEDS ORDERED: ASPIRIN 325 MG TAB PO ONE (12:50)
[2021-08-18 13:21] LABS: FREE T4 1.27 NG/DL (0.76-1.46)
[2021-08-18] MEDS ORDERED: ATIV1TAB10 PO (13:26)
[2021-08-18] MEDS ORDERED: MED NOTE (13:26)
[2021-08-18] MEDS ORDERED: B-12100021 PO (13:26)
[2021-08-18] MEDS ORDERED: HOME MED LIST COMPLETE! XX SCH (13:30)
[2021-08-18 13:37] LABS: VITAMIN B12 LEVEL 1596 PG/ML (247-911)
[2021-08-18] MEDS: ENOXAPARIN 40MG/0.4ML SYRINGE (J1650 PER 10MG) SC SCH (13:39)
[2021-08-18 13:43] LABS: RSV AMPLIFICATION NEGATIVE (NEGATIVE)
[2021-08-18] MEDS: rOPINIRole 0.25 MG TAB(REQUIP) PO SCH ×2 (16:00→20:00)
[2021-08-18] MEDS: FAMOTIDINE 20 MG TAB PO SCH (19:29)
[2021-08-18] MEDS: lamoTRIgine 100MG TAB PO SCH (19:30)
[2021-08-18] MEDS: MONTELUKAST 10 MG TAB PO SCH (19:30)
[2021-08-18] MEDS: SIMVASTATIN 10 MG TAB PO SCH (19:30)
[2021-08-18] MEDS: LORazepam 0.5 MG TAB PO SCH (19:31)
[2021-08-18] MEDS: NORTRIPTYLINE 25 MG CAP PO SCH (19:59)
[2021-08-18] MEDS: cloZAPine 100 MG TAB (S0136) PO SCH (19:59)
[2021-08-18] MEDS: AMANTADINE 100MG TABLET PO SCH (20:00)
[2021-08-18 20:30] VITALS: BP 105/70
[2021-08-19] MEDS: LEVOTHYROXINE 88MCG TABLET (0.088 MG) PO SCH (05:56)
[2021-08-19 06:00] VITALS: BP 98/57
[2021-08-19 06:22] LABS: HEMATOCRIT 34.6 % (36.0-47.0); HEMOGLOBIN 10.9 g/dl (12.0-15.5); MEAN CORPUSCULAR HGB CONC 31.5 g/dl (32.0-36.5); MEAN CORPUSCULAR VOLUME 95.3 fl (80.0-96.0); PLATELET COUNT, AUTOMATED 204 10^3/uL (150-450); RED BLOOD COUNT 3.63 10^6/uL (4.00-5.40); WHITE BLOOD COUNT 8.4 10^3/uL (4.0-10.0)
[2021-08-19 06:41] LABS: BLOOD UREA NITROGEN 11 MG/DL (7-18); CALCIUM LEVEL 8.2 MG/DL (8.5-10.1); CARBON DIOXIDE LEVEL 28 MEQ/L (21-32); CHLORIDE LEVEL 113 MEQ/L (98-107); CREATININE FOR GFR 0.66 MG/DL (0.55-1.30); GLOMERULAR FILTRATION RATE > 60.0 (>51); GLUCOSE, FASTING 84 MG/DL (70-100); MAGNESIUM LEVEL 1.8 MG/DL (1.8-2.4); SODIUM LEVEL 143 MEQ/L (136-145)
[2021-08-19] MEDS: FAMOTIDINE 20 MG TAB PO SCH ×2 (08:41→20:43)
[2021-08-19] MEDS: DIVALPROEX 500 MG TAB PO SCH (08:41)
[2021-08-19] MEDS: lamoTRIgine 100MG TAB PO SCH ×2 (08:41→20:42)
[2021-08-19] MEDS: rOPINIRole 0.25 MG TAB(REQUIP) PO SCH ×3 (08:41→20:47)
[2021-08-19] MEDS: cloZAPine 25 MG TAB (S0136) PO SCH (08:42)
[2021-08-19] MEDS: ENOXAPARIN 40MG/0.4ML SYRINGE (J1650 PER 10MG) SC SCH (08:42)
[2021-08-19] MEDS: LORazepam 0.5 MG TAB PO SCH ×2 (08:42→20:47)
[2021-08-19] MEDS: AMANTADINE 100MG TABLET PO SCH ×2 (08:42→20:47)
[2021-08-19] MEDS: ASPIRIN 81 MG CHEW TABLET PO SCH (08:49)
[2021-08-19] MEDS ORDERED: ASPIRIN 325 MG TAB PO SCH (09:00)
[2021-08-19] MEDS ORDERED: MAGNESIUM OXIDE 400MG TAB (MAG-OX) PO ONE (10:00)
[2021-08-19 14:00] VITALS: BP 107/70
[2021-08-19] MEDS ORDERED: diphenhydrAMINE 50MG CAP PO ONE (19:55)
[2021-08-19] MEDS ORDERED: METOCLOPRAMIDE INJ 10MG/2ML VIAL (J2765 PER 1) IV ONE (19:55)
[2021-08-19] MEDS ORDERED: KETOROLAC 30 MG/ML 1ML VIAL IV ONE (19:55)
[2021-08-19] MEDS: cloZAPine 100 MG TAB (S0136) PO SCH (20:42)
[2021-08-19] MEDS: SIMVASTATIN 10 MG TAB PO SCH (20:46)
[2021-08-19] MEDS: NORTRIPTYLINE 25 MG CAP PO SCH (20:46)
[2021-08-19] MEDS: MONTELUKAST 10 MG TAB PO SCH (20:47)
[2021-08-19 22:00] VITALS: BP 107/68
[2021-08-20] MEDS: LEVOTHYROXINE 88MCG TABLET (0.088 MG) PO SCH (05:29)
[2021-08-20 06:00] VITALS: BP 103/66
[2021-08-20 06:44] LABS: HEMATOCRIT 34.9 % (36.0-47.0); HEMOGLOBIN 11.2 g/dl (12.0-15.5); MEAN CORPUSCULAR HGB CONC 32.1 g/dl (32.0-36.5); MEAN CORPUSCULAR VOLUME 93.6 fl (80.0-96.0); PLATELET COUNT, AUTOMATED 203 10^3/uL (150-450); RED BLOOD COUNT 3.73 10^6/uL (4.00-5.40); WHITE BLOOD COUNT 5.9 10^3/uL (4.0-10.0)
[2021-08-20 07:09] LABS: BLOOD UREA NITROGEN 13 MG/DL (7-18); CALCIUM LEVEL 8.1 MG/DL (8.5-10.1); CARBON DIOXIDE LEVEL 25 MEQ/L (21-32); CHLORIDE LEVEL 112 MEQ/L (98-107); CREATININE FOR GFR 0.63 MG/DL (0.55-1.30); GLOMERULAR FILTRATION RATE > 60.0 (>51); GLUCOSE, FASTING 83 MG/DL (70-100); MAGNESIUM LEVEL 1.8 MG/DL (1.8-2.4); PHOSPHORUS LEVEL 3.6 MG/DL (2.5-4.9); POTASSIUM SERUM 3.9 MEQ/L (3.5-5.1); SODIUM LEVEL 144 MEQ/L (136-145)
[2021-08-20] MEDS: ENOXAPARIN 40MG/0.4ML SYRINGE (J1650 PER 10MG) SC SCH (09:47)
[2021-08-20] MEDS: DIVALPROEX 500 MG TAB PO SCH (09:47)
[2021-08-20] MEDS: AMANTADINE 100MG TABLET PO SCH ×2 (09:48→19:47)
[2021-08-20] MEDS: LORazepam 0.5 MG TAB PO SCH ×2 (09:48→19:48)
[2021-08-20] MEDS: FAMOTIDINE 20 MG TAB PO SCH ×2 (09:48→19:47)
[2021-08-20] MEDS: rOPINIRole 0.25 MG TAB(REQUIP) PO SCH ×3 (09:48→19:48)
[2021-08-20] MEDS: lamoTRIgine 100MG TAB PO SCH ×2 (09:48→19:49)
[2021-08-20] MEDS: ASPIRIN 81 MG CHEW TABLET PO SCH (09:48)
[2021-08-20] MEDS: cloZAPine 25 MG TAB (S0136) PO SCH (09:48)
[2021-08-20] MEDS: cloZAPine 100 MG TAB (S0136) PO SCH (19:48)
[2021-08-20] MEDS: NORTRIPTYLINE 25 MG CAP PO SCH (19:48)
[2021-08-20] MEDS: SIMVASTATIN 10 MG TAB PO SCH (19:48)
[2021-08-20] MEDS: MONTELUKAST 10 MG TAB PO SCH (19:49)
[2021-08-20 22:00] VITALS: BP 102/66
[2021-08-21 06:00] VITALS: BP 100/65
[2021-08-21] MEDS: LEVOTHYROXINE 88MCG TABLET (0.088 MG) PO SCH (06:03)
[2021-08-21] MEDS: FAMOTIDINE 20 MG TAB PO SCH (08:17)
[2021-08-21] MEDS: DIVALPROEX 500 MG TAB PO SCH (08:18)
[2021-08-21] MEDS: LORazepam 0.5 MG TAB PO SCH (08:18)
[2021-08-21] MEDS: AMANTADINE 100MG TABLET PO SCH (08:18)
[2021-08-21] MEDS: lamoTRIgine 100MG TAB PO SCH (08:18)
[2021-08-21] MEDS: rOPINIRole 0.25 MG TAB(REQUIP) PO SCH (08:18)
[2021-08-21] MEDS: ASPIRIN 81 MG CHEW TABLET PO SCH (08:18)
[2021-08-21] MEDS: ENOXAPARIN 40MG/0.4ML SYRINGE (J1650 PER 10MG) SC SCH (08:19)
[2021-08-21] MEDS: cloZAPine 25 MG TAB (S0136) PO SCH (08:25)
== END 2021-08-21 09:17 | disposition home or self-care (01) | DRG 93 ==
LOC: M ED 09:18 → M ED INP 12:46 → M MSPAV 20:31
PROVIDERS: ADMIT Internal Medicine; ATTEND Internal Medicine
DX: R47.81 Slurred speech (principal); T43.505A Adverse effect of unspecified antipsychotics and neuroleptics, initial encounter; F31.9 Bipolar disorder, unspecified; F41.9 Anxiety disorder, unspecified; F60.9 Personality disorder, unspecified; E78.5 Hyperlipidemia, unspecified; E03.9 Hypothyroidism, unspecified; Z86.73 Personal history of transient ischemic attack (TIA), and cerebral infarction without residual deficits; G43.909 Migraine, unspecified, not intractable, without status migrainosus; Z98.84 Bariatric surgery status; Z79.899 Other long term (current) drug therapy; Z88.8 Allergy status to other drugs, medicaments and biological substances; Z20.822 Contact with and (suspected) exposure to COVID-19; D64.9 Anemia, unspecified; R53.1 Weakness

== ENCOUNTER → 2021-12-19 | Outpatient (REF) | payer MEDICARE, MEDICAID ==
[~2021-12-19] MED LIST changes: +AMAN100T PO; +ATIV1TAB10 PO; +B-12100021 PO; +DIVA500T94 PO; +MED NOTE; +OLAN10TA12 PO; +OLAN1TAB16; +ROPI0.253 PO
== END ==
LOC: M SFHCCAPE 16:05
PROVIDERS: ATTEND Physician Assistant
DX: L08.9 Local infection of the skin and subcutaneous tissue, unspecified (principal)

== ENCOUNTER → 2022-03-06 | Outpatient (CLI) | payer MEDICARE, MEDICAID | LOC: M RAD 14:59 | PROVIDERS: ATTEND Nurse Practitioner Family | DX: M54.6 Pain in thoracic spine (principal); M47.814 Spondylosis without myelopathy or radiculopathy, thoracic region ==

== ENCOUNTER 2022-10-10 18:38 | Inpatient (IN) | payer MEDICARE, MEDICAID ==
[~2022-10-10] VITALS: Ht 154.9 cm; Wt 54.5 kg
[~2022-10-10 18:38] MED LIST changes: -CLOZ100T2 PO; +CLOZ100T5 PO; -CLOZ200T PO; +CLOZ200T4 PO
[2022-10-10 20:34] LABS: BASO # 0.1 10^3/uL (0.0-0.2); BASO % 0.9 % (0.0-1.0); EOS # 0.2 10^3/uL (0.0-0.5); EOS % 2.8 % (0.0-3.0); HEMATOCRIT 37.7 % (36.0-47.0); HEMOGLOBIN 11.6 g/dl (12.0-15.5); LYMPH # 2.3 10^3/uL (1.5-5.0); LYMPH % 34.1 % (24.0-44.0); MEAN CORPUSCULAR HEMOGLOBIN 25.9 pg (27.0-33.0); MEAN CORPUSCULAR HGB CONC 30.8 g/dl (32.0-36.5); MEAN CORPUSCULAR VOLUME 84.2 fl (80.0-96.0); MONO # 0.5 10^3/uL (0.0-0.8); MONO % 7.9 % (2.0-8.0); NEUTROPHILS # 3.7 10^3/uL (1.5-8.5); NEUTROPHILS % 54.2 % (36.0-66.0); PLATELET COUNT, AUTOMATED 265 10^3/uL (150-450); RED BLOOD COUNT 4.48 10^6/uL (4.00-5.40); WHITE BLOOD COUNT 6.8 10^3/uL (4.0-10.0)
[2022-10-10 20:44] LABS: CK-MB VALUE MASS < 1.0 NG/ML (<3.6); INR 0.89; PARTIAL THROMBOPLASTIN TIME 24.7 SECONDS (24.8-34.2); PROTHROMBIN TIME 12.2 SECONDS (12.5-14.5)
[2022-10-10 20:46] LABS: BLOOD UREA NITROGEN 14 MG/DL (9-23); CALCIUM LEVEL 9.1 MG/DL (8.5-10.1); CARBON DIOXIDE LEVEL 26 MMOL/L (20-31); CHLORIDE LEVEL 108 MMOL/L (98-107); CREATININE FOR GFR 0.79 MG/DL (0.55-1.30); GLOMERULAR FILTRATION RATE > 60.0 (>51); GLUCOSE, FASTING 83 MG/DL (60-100); POTASSIUM SERUM 4.9 MMOL/L (3.5-5.1); SODIUM LEVEL 142 MMOL/L (136-145)
[2022-10-10 20:54] LABS: RSV AMPLIFICATION NEGATIVE (NEGATIVE)
[2022-10-10 20:55] LABS: CPK CREATINE PHOSPHOKINASE 61 U/L (34-145); MB/CK RELATIVE INDEX 1.63 (< OR =4)
[2022-10-10] MEDS ORDERED: FLUO1CRE2 TOP (22:48)
[2022-10-10] MEDS ORDERED: OXYC10TA3 PO (22:48)
[2022-10-10] MEDS ORDERED: BUSP10TA79 PO (22:48)
[2022-10-10] MEDS ORDERED: LAMO25TA4 PO (22:48)
[2022-10-10] MEDS ORDERED: ACETAMINOPHEN 1000MG 100ML IV BAG IV ONE (22:50)
[2022-10-10] MEDS ORDERED: ASPIRIN 81MG CHEW TABLET PO ONE (22:55)
[2022-10-10] MEDS ORDERED: ISOVUE-370 76% 100ML VIAL As Ordered ONE (22:56)
[2022-10-11] MEDS ORDERED: LAMO25TA4 PO (01:27)
[2022-10-11] MEDS ORDERED: AMAN100T PO (01:27)
[2022-10-11] MEDS ORDERED: VITMTA PO (01:27)
[2022-10-11] MEDS ORDERED: BUSP10TA PO (01:27)
[2022-10-11] MEDS ORDERED: B-650TAB2 PO (01:27)
[2022-10-11] MEDS ORDERED: HOME MED LIST COMPLETE! XX SCH (01:30)
[2022-10-11] MEDS ORDERED: LORazepam 0.5 MG TAB PO PRN (01:50)
[2022-10-11] MEDS ORDERED: LEVOTHYROXINE 88MCG TABLET (0.088 MG) PO SCH (06:00)
[2022-10-11] MEDS ORDERED: HEPARIN SOD (PORCINE) 5000UNITS/ML 1ML VIAL/SYRINGE SC SCH (06:00)
[2022-10-11] MEDS ORDERED: ASPI81TAEC PO (07:07)
[2022-10-11 07:14] LABS: BASO # 0.1 10^3/uL (0.0-0.2); BASO % 1.2 % (0.0-1.0); EOS # 0.3 10^3/uL (0.0-0.5); EOS % 4.3 % (0.0-3.0); HEMATOCRIT 33.9 % (36.0-47.0); HEMOGLOBIN 10.5 g/dl (12.0-15.5); LYMPH # 1.8 10^3/uL (1.5-5.0); LYMPH % 29.6 % (24.0-44.0); MEAN CORPUSCULAR VOLUME 83.9 fl (80.0-96.0); MONO # 0.6 10^3/uL (0.0-0.8); MONO % 9.8 % (2.0-8.0); NEUTROPHILS # 3.3 10^3/uL (1.5-8.5); NEUTROPHILS % 54.9 % (36.0-66.0); PLATELET COUNT, AUTOMATED 245 10^3/uL (150-450); RED BLOOD COUNT 4.04 10^6/uL (4.00-5.40)
[2022-10-11 07:25] LABS: INR 0.94; PROTHROMBIN TIME 12.8 SECONDS (12.5-14.5)
[2022-10-11] MEDS ORDERED: KETOROLAC 30 MG/ML 1ML VIAL IV ONE (07:25)
[2022-10-11] MEDS ORDERED: FIORICET TAB PO ONE (07:25)
[2022-10-11] MEDS ORDERED: NS 500 ML IV ONE (07:25)
[2022-10-11] MEDS ORDERED: METOCLOPRAMIDE INJ 10MG/2ML VIAL IV ONE (07:25)
[2022-10-11 07:40] LABS: CK-MB VALUE MASS < 1.0 NG/ML (<3.6)
[2022-10-11 07:42] LABS: CPK CREATINE PHOSPHOKINASE 45 U/L (34-145); MB/CK RELATIVE INDEX 2.22 (< OR =4)
[2022-10-11 07:43] LABS: BILIRUBIN,DIRECT < 0.1 MG/DL (<0.4)
[2022-10-11 07:44] LABS: ALBUMIN 3.4 G/DL (3.2-5.2); ALKALINE PHOSPHATASE 120 U/L (46-116); ALT/SGPT 34 U/L (7.0-40); AST/SGOT 23 U/L (<34); BILIRUBIN,TOTAL 0.3 MG/DL (0.3-1.2); BLOOD UREA NITROGEN 13 MG/DL (9-23); CARBON DIOXIDE LEVEL 24 MMOL/L (20-31); CHLORIDE LEVEL 111 MMOL/L (98-107); CHOLESTEROL LEVEL 164 MG/DL (<200); CHOLESTEROL RISK RATIO 2.61 (<5); CREATININE FOR GFR 0.75 MG/DL (0.55-1.30); GLOMERULAR FILTRATION RATE > 60.0 (>51); GLUCOSE, FASTING 103 MG/DL (60-100); HDL CHOLESTEROL 62.7 MG/DL (>40); LDL CHOLESTEROL 74.5 MG/DL (<100); NON-HDL-C 101 MG/DL; POTASSIUM SERUM 3.9 MMOL/L (3.5-5.1); SODIUM LEVEL 143 MMOL/L (136-145); TOTAL PROTEIN 5.8 G/DL (5.7-8.2); TRIGLYCERIDES LEVEL 134 MG/DL (<150)
[2022-10-11] MEDS ORDERED: ATORVASTATIN 20 MG TAB PO SCH (09:00)
[2022-10-11] MEDS ORDERED: busPIRone 10 MG TAB PO SCH (09:00)
[2022-10-11] MEDS ORDERED: lamoTRIgine 25MG TAB PO SCH (09:00)
[2022-10-11] MEDS ORDERED: lamoTRIgine 100MG TAB PO SCH (09:00)
[2022-10-11] MEDS ORDERED: rOPINIRole 0.25 MG TAB(REQUIP) PO SCH (09:00)
[2022-10-11] MEDS ORDERED: MULTIVITAMINS/MINERALS THERAP 1 TAB PO SCH (09:00)
[2022-10-11] MEDS ORDERED: FAMOTIDINE 20 MG TAB PO SCH (09:00)
[2022-10-11] MEDS ORDERED: AMANTADINE 100MG TABLET PO SCH ×2 (09:00→21:00)
[2022-10-11] MEDS ORDERED: ASPIRIN 81MG ENTERIC TABLET PO SCH (09:00)
[2022-10-11 10:29] VITALS: BP 110/63
[2022-10-11] MEDS ORDERED: FIORICET TAB PO PRN (11:00)
[2022-10-11] MEDS ORDERED: PYRIDOXINE 50 MG TAB PO SCH (12:00)
[2022-10-11] MEDS ORDERED: SIMVASTATIN 40 MG TAB PO SCH (21:00)
[2022-10-11] MEDS ORDERED: NORTRIPTYLINE 25 MG CAP PO SCH (21:00)
== END 2022-10-11 10:34 | disposition home or self-care (01) | DRG 103 ==
LOC: M ED 18:38 → M ED INP 23:56 → UNDOADMIN 23:56
PROVIDERS: ADMIT Family Medicine; ATTEND Family Medicine
DX: G43.909 Migraine, unspecified, not intractable, without status migrainosus (principal); R42 Dizziness and giddiness; E03.9 Hypothyroidism, unspecified; E78.5 Hyperlipidemia, unspecified; I10 Essential (primary) hypertension; F31.9 Bipolar disorder, unspecified; F41.9 Anxiety disorder, unspecified; D63.8 Anemia in other chronic diseases classified elsewhere; Z86.73 Personal history of transient ischemic attack (TIA), and cerebral infarction without residual deficits; F60.9 Personality disorder, unspecified; Z88.8 Allergy status to other drugs, medicaments and biological substances; Z79.899 Other long term (current) drug therapy

== ENCOUNTER → 2022-10-15 | Outpatient (REF) | payer MEDICARE, MEDICAID ==
[~2022-10-15] MED LIST changes: +ASPI81TAEC PO; +B-650TAB2 PO; +BUSP10TA PO; +BUSP10TA79 PO; -CLOZ50TA PO; +CLOZ50TA4 PO; +FLUO1CRE2 TOP; +LAMO25TA4 PO
[2022-10-15 17:49] LABS: BASO # 0.1 10^3/uL (0.0-0.2); BASO % 1.1 % (0.0-1.0); EOS # 0.2 10^3/uL (0.0-0.5); EOS % 2.8 % (0.0-3.0); HEMATOCRIT 36.2 % (36.0-47.0); HEMOGLOBIN 10.8 g/dl (12.0-15.5); LYMPH # 1.9 10^3/uL (1.5-5.0); LYMPH % 33.2 % (24.0-44.0); MEAN CORPUSCULAR HEMOGLOBIN 25.2 pg (27.0-33.0); MEAN CORPUSCULAR HGB CONC 29.8 g/dl (32.0-36.5); MEAN CORPUSCULAR VOLUME 84.6 fl (80.0-96.0); MONO # 0.6 10^3/uL (0.0-0.8); MONO % 10.6 % (2.0-8.0); NEUTROPHILS % 51.9 % (36.0-66.0); PLATELET COUNT, AUTOMATED 263 10^3/uL (150-450); RED BLOOD COUNT 4.28 10^6/uL (4.00-5.40); WHITE BLOOD COUNT 5.7 10^3/uL (4.0-10.0)
[2022-10-15 17:53] LABS: ALBUMIN 3.6 G/DL (3.2-5.2); ALKALINE PHOSPHATASE 129 U/L (46-116); ALT/SGPT 35 U/L (7.0-40); AST/SGOT 27 U/L (<34); BILIRUBIN,TOTAL < 0.2 MG/DL (0.3-1.2); BLOOD UREA NITROGEN 19 MG/DL (9-23); CALCIUM LEVEL 9.2 MG/DL (8.5-10.1); CARBON DIOXIDE LEVEL 24 MMOL/L (20-31); CHLORIDE LEVEL 108 MMOL/L (98-107); GLOMERULAR FILTRATION RATE > 60.0 (>51); GLUCOSE, FASTING 86 MG/DL (60-100); IRON (FE) 21 UG/DL (50-170); PERCENT SATURATION 5.7 % (13.2-45.0); POTASSIUM SERUM 4.1 MMOL/L (3.5-5.1); SODIUM LEVEL 142 MMOL/L (136-145); THYROID STIMULATING HORMONE 1.592 uIU/ML (0.55-4.78); TOTAL 25(OH) VITAMIN D 46.1 NG/ML (20.0-100.0); TOTAL IRON BINDING CAPACITY 367 UG/DL (250-425); TOTAL PROTEIN 6.6 G/DL (5.7-8.2)
[2022-10-15 17:54] LABS: FERRITIN 4.7 NG/ML (7.3-270.7)
[2022-10-15 17:55] LABS: FOLATE > 24.0 NG/ML (>5.4); FREE T4 1.03 NG/DL (0.89-1.76)
[2022-10-15 17:57] LABS: VITAMIN B12 LEVEL > 2000 PG/ML (211-911)
[2022-10-15 19:01] LABS: APPEARANCE, URINE MANUAL HAZY (CLEAR); COLOR, URINE MANUAL DK YELLOW (YELLOW); PH,URINE MAN 5.5 UNITS (5.0 - 7.0)
[2022-10-15 19:02] LABS: GLUCOSE, URINE (UA) MANUAL NEGATIVE (NEGATIVE); KETONE, URINE MANUAL NEGATIVE (NEGATIVE); PROTEIN, URINE MANUAL TRACE mg/dL (NEGATIVE)
[2022-10-15 19:03] LABS: BILIRUBIN, URINE MANUAL 1+ (NEGATIVE); BLOOD URINE MANUAL NEGATIVE (NEGATIVE); LEUKOCYTE ESTERASE, URINE MAN NEGATIVE (NEGATIVE); NITRITE, URINE MANUAL NEGATIVE (NEGATIVE); UROBILINOGEN, URINE MANUAL NORMAL (NORMAL)
[2022-10-15 19:52] LABS: CALCIUM OXALATE CRYSTALS,URINE MOD AMOUNT /hpf; SQUAMOUS EPITHELIAL CELL URINE SMALL AMOUNT /hpf (SMALL AMT)
[2022-10-15 19:53] LABS: BACTERIA, URINE MOD AMOUNT; MUCUS, URINE SMALL AMOUNT (NEGATIVE); RBC, URINE 0-1 /hpf (0-3)
[2022-10-15 19:54] LABS: HYALINE CAST, URINE 0-1 /lpf (0-1)
[2022-10-21 08:08] LABS: HOMOCYST(E)INE SERUM 5.3 umol/L (0.0-14.5); Methylmalonic Acid 128 nmol/L (0-378)
== END ==
LOC: M SFHCCAPE 08:50
PROVIDERS: ATTEND Physician Assistant
DX: R42 Dizziness and giddiness (principal); G43.919 Migraine, unspecified, intractable, without status migrainosus; I95.9 Hypotension, unspecified; Z86.73 Personal history of transient ischemic attack (TIA), and cerebral infarction without residual deficits

== ENCOUNTER → 2022-12-18 | Outpatient (REF) | payer MEDICARE, MEDICAID ==
[2022-12-18 17:55] LABS: AMORPHOUS SEDIMENT SMALL (NEGATIVE); APPEARANCE, URINE HAZY (CLEAR); BACTERIA, URINE AUTO NEGATIVE (NEGATIVE); BILIRUBIN, URINE AUTO NEGATIVE (NEGATIVE); BLOOD, URINE BLOOD NEGATIVE (NEGATIVE); CALCIUM OXALATE CRYSTALS SMALL; COLOR, URINE YELLOW (YELLOW); GLUCOSE, URINE (UA) AUTO NEGATIVE (NEGATIVE); KETONE, URINE AUTO NEGATIVE (NEGATIVE); LEUKOCYTE ESTERASE, URINE AUTO TRACE (NEGATIVE); NITRITE, URINE AUTO NEGATIVE (NEGATIVE); PROTEIN, URINE AUTO NEGATIVE (NEGATIVE); RBC, URINE AUTO 1 /HPF (0-3); SPECIFIC GRAVITY URINE AUTO 1.009 (1.002-1.035); SQUAMOUS EPITHELIAL CELL UR AU 5 /HPF (0-6); UROBILINOGEN, URINE AUTO 0.2 mg/dL (0.0-2.0); WBC, URINE AUTO 4 /HPF (0-3)
== END ==
LOC: M SFHCCAPE 13:59
PROVIDERS: ATTEND Physician Assistant
DX: R42 Dizziness and giddiness (principal); Z79.899 Other long term (current) drug therapy

== ENCOUNTER 2023-01-31 10:36 | Outpatient (CLI) | payer MEDICARE, MEDICAID ==
[~2023-01-31] VITALS: Ht 162.6 cm; Wt 60.0 kg
[~2023-01-31 10:36] MED LIST changes: +ALBUTEROL SULFATE 2.5MG/0.5ML INH NEB SOLN INH PRN; +EPINEPHrine INJ 1 MG/ML 1ML AMP IM PRN; +LORA1TAB23 PO; -LORA1TAB4 PO; +diphenhydrAMINE 50MG/ML VIAL IV PRN; +methylPREDNISolone 125MG 2ML VIAL IV PRN
[2023-01-31 10:44] VITALS: BP 116/66
[2023-01-31] MEDS ORDERED: FERRIC CARBOXYMALTOSE INJ 750 MG in NS 250 ML (>50kg) IV ONE ×3 (11:00)
[2023-01-31] MEDS ORDERED: NS 1,000 ML IV SCH (11:00)
[2023-01-31 12:15] VITALS: BP 124/71
== END 2023-01-31 12:15 | disposition home or self-care (01) ==
LOC: M INFU 10:36
PROVIDERS: ATTEND Internal Medicine Hematology
DX: D50.9 Iron deficiency anemia, unspecified (principal); Z88.8 Allergy status to other drugs, medicaments and biological substances
CPT/HCPCS: 96365; J1439

== ENCOUNTER 2023-02-07 10:10 | Outpatient (CLI) | payer MEDICARE, MEDICAID ==
[~2023-02-07] VITALS: Ht 157.5 cm; Wt 57.3 kg
[2023-02-07 10:10] VITALS: BP 119/72
[2023-02-07] MEDS ORDERED: FERRIC CARBOXYMALTOSE INJ 750 MG in NS 250 ML (>50kg) IV ONE ×3 (10:30)
[2023-02-07] MEDS ORDERED: NS 1,000 ML IV SCH (10:30)
[2023-02-07 11:26] VITALS: BP 105/73
== END 2023-02-07 11:50 | disposition home or self-care (01) ==
LOC: M INFU 10:10
PROVIDERS: ATTEND Internal Medicine Hematology
DX: D50.9 Iron deficiency anemia, unspecified (principal); Z88.6 Allergy status to analgesic agent; Z88.8 Allergy status to other drugs, medicaments and biological substances
CPT/HCPCS: 96365; J1439

== ENCOUNTER → 2023-10-11 | Outpatient (CLI) | payer MEDICARE, MEDICAID ==
[~2023-10-11] MED LIST changes: -ALBUTEROL SULFATE 2.5MG/0.5ML INH NEB SOLN INH PRN; -BIOT50004 PO; +BIOT5CAP8 PO; -EPINEPHrine INJ 1 MG/ML 1ML AMP IM PRN; -ROPI0.253 PO; +ROPI5TAB19 PO; -diphenhydrAMINE 50MG/ML VIAL IV PRN; -methylPREDNISolone 125MG 2ML VIAL IV PRN
== END ==
LOC: M WUC 09:41
PROVIDERS: ATTEND Physician Assistant Medical
DX: M25.522 Pain in left elbow (principal)

== ENCOUNTER → 2024-03-11 | Outpatient (REF) | payer MEDICARE, MEDICAID ==
[~2024-03-11] MED LIST changes: -FOLI0.8T2 PO; +[UNRECOGNIZED DRUG - CODE] PO
[2024-03-11 19:15] LABS: BASO # 0.1 10^3/uL (0.0-0.2); BASO % 0.6 % (0.0-1.0); EOS # 0.3 10^3/uL (0.0-0.5); EOS % 2.2 % (0.0-3.0); HEMATOCRIT 38.6 % (36.0-47.0); HEMOGLOBIN 12.4 g/dl (12.0-15.5); LYMPH # 1.5 10^3/uL (1.5-5.0); LYMPH % 12.1 % (24.0-44.0); MEAN CORPUSCULAR HEMOGLOBIN 29.7 pg (27.0-33.0); MEAN CORPUSCULAR HGB CONC 32.1 g/dl (32.0-36.5); MEAN CORPUSCULAR VOLUME 92.6 fl (80.0-96.0); MONO # 0.7 10^3/uL (0.0-0.8); MONO % 5.3 % (2.0-8.0); NEUTROPHILS # 9.9 10^3/uL (1.5-8.5); NEUTROPHILS % 79.5 % (36.0-66.0); PLATELET COUNT, AUTOMATED 240 10^3/uL (150-450); RED BLOOD COUNT 4.17 10^6/uL (4.00-5.40); WHITE BLOOD COUNT 12.4 10^3/uL (4.0-10.0)
[2024-03-11 19:22] LABS: CHOLESTEROL RISK RATIO 2.71 (<5); HDL CHOLESTEROL 62.6 MG/DL (>40); NON-HDL-C 107.4 MG/DL
[2024-03-11 19:25] LABS: ALBUMIN 3.5 G/DL (3.2-5.2); ALKALINE PHOSPHATASE 105 U/L (46-116); ALT/SGPT 28 U/L (7.0-40); AST/SGOT 17 U/L (<34); BILIRUBIN,TOTAL 0.2 MG/DL (0.3-1.2); BLOOD UREA NITROGEN 18 MG/DL (9-23); CALCIUM LEVEL 9.1 MG/DL (8.5-10.1); CARBON DIOXIDE LEVEL 27 MMOL/L (20-31); CHLORIDE LEVEL 108 MMOL/L (98-107); CREATININE FOR GFR 0.82 MG/DL (0.55-1.30); GLOMERULAR FILTRATION RATE > 60.0 (>51); GLUCOSE, FASTING 102 MG/DL (60-100); IRON (FE) 18 UG/DL (50-170); MAGNESIUM LEVEL 2.1 MG/DL (1.8-2.4); POTASSIUM SERUM 4.3 MMOL/L (3.5-5.1); SODIUM LEVEL 140 MMOL/L (136-145); TOTAL IRON BINDING CAPACITY 298 UG/DL (250-425); TOTAL PROTEIN 6.4 G/DL (5.7-8.2)
[2024-03-11 19:26] LABS: FERRITIN 78.5 NG/ML (7.3-270.7); THYROID STIMULATING HORMONE 3.132 uIU/ML (0.55-4.78)
[2024-03-11 19:27] LABS: VITAMIN B12 LEVEL 1389 PG/ML (211-911)
[2024-03-11 19:28] LABS: FOLATE > 24.0 NG/ML (>5.4)
[2024-03-11 19:41] LABS: HEMOGLOBIN A1c 4.8 % (4.0-6.0)
== END ==
LOC: M SFHCCAPE 11:40
PROVIDERS: ATTEND Physician Assistant Medical
DX: R68.83 Chills (without fever) (principal); D50.8 Other iron deficiency anemias; K21.9 Gastro-esophageal reflux disease without esophagitis; E03.9 Hypothyroidism, unspecified; Z98.84 Bariatric surgery status; R73.09 Other abnormal glucose; E78.5 Hyperlipidemia, unspecified

== ENCOUNTER → 2025-01-25 | Outpatient (CLI) | payer MEDICARE, MEDICAID ==
[~2025-01-25] MED LIST changes: +FOLI-17 PO; +GABA-1490 PO; -GABA600T4 PO; +LAMO-18 PO; -LAMO25TA4 PO; -MULT200T7 PO; +MULT200T9 PO; +OMEG-28; -OMEG1CAP85; +TOPI-14 PO; +TOPI-257 PO; -TOPI100T9 PO; -TOPI200T7 PO; -[UNRECOGNIZED DRUG - CODE] PO
== END ==
LOC: M WUC 12:38
PROVIDERS: ATTEND Physician Assistant Medical
DX: M79.641 Pain in right hand (principal); M79.642 Pain in left hand; M19.141 Post-traumatic osteoarthritis, right hand; M19.142 Post-traumatic osteoarthritis, left hand

== ENCOUNTER → 2025-02-01 | Outpatient (CLI) | payer MEDICARE, MEDICAID | LOC: M WHC 12:16 | PROVIDERS: ATTEND Physician Assistant Medical | DX: Z12.31 Encounter for screening mammogram for malignant neoplasm of breast (principal); R92.333 Mammographic heterogeneous density, bilateral breasts ==